=== PATIENT | female | born 1945 | race Caucasian/White ===

== ENCOUNTER 2018-06-04 14:53 | Inpatient (IN) ==
--- NOTE | 2018-06-04 16:30 | ED ---
HPI General Chief Complaint: Nausea/Vomiting/Diarrhea Stated Complaint: nausea/vomitting Time Seen by Provider: 06/04/18 16:23 Source: patient Mode of arrival: ambulatory Limitations: no limitations History of Present Illness HPI Narrative: According to patient she has been experiencing some nausea vomiting and diarrhea associated with some room spinning spells over the past 3- 4 days which are becoming worse. The episodes of room spinning have been so severe that it has cause her to have nausea vomiting multiple times. Now the patient is complaining of generalized weakness to the point that she now requires her 's assistance in order to ambulate and change in pivot from chair to bed or from bed to standing. MD complaint: Reports dizziness Timing: sudden onset Description: Reports "room spinning" History of similar episodes: No History of trauma: No Severity: moderate Relieving factors: nothing Exacerbating factors: movement Associated symptoms: Denies ataxia, chest pain and vision changes Related Data Home Medications Medication Instructions Recorded Confirmed amlodipine 10 mg PO DAILY 06/04/18 06/04/18 cholecalciferol (vitamin D3) 5,000 unit PO DAILY 06/04/18 06/04/18 [Vitamin D3] dabigatran etexilate [Pradaxa] 150 mg PO BID 06/04/18 06/04/18 escitalopram oxalate 20 mg PO DAILY 06/04/18 06/04/18 esomeprazole magnesium 40 mg PO DAILY 06/04/18 06/04/18 furosemide 80 mg PO DAILY 06/04/18 06/04/18 glipizide 5 mg PO BID 06/04/18 06/04/18 hydrocodone-acetaminophen 1 tab PO TID PRN 06/04/18 06/04/18 lovastatin 20 mg PO DAILY 06/04/18 06/04/18 metoprolol tartrate 75 mg PO BID 06/04/18 06/04/18 potassium chloride 10 meq PO DAILY 06/04/18 06/04/18 Allergies Allergy/AdvReac Type Severity Reaction Status Date / Time No Known Allergies Allergy Verified 06/04/18 16:18 Review of Systems ROS: all other systems reviewed are negative [facility] Medical History Medical History Afib (Acute) Diabetes (Acute) HTN (hypertension) (Acute) Surgical History Surgical History Hx of section (Acute) Hx of cholecystectomy (Acute) Social History Social History Second Hand Smoke Exposure: No Smoking Status: Never smoker How Often Do You Have a Drink Containing Alcohol: Never Recent Travel in [facility] within the Last 8 Weeks: No Recent Out of Country Travel within the Last 8 Weeks: No Immunization History Tetanus Immunization: Unsure Exam Narrative Exam Narrative: GENERAL: female patient in no apparent distress. SKIN: Warm and dry. HEAD: Atraumatic. Normocephalic. EYES: Pupils equal and round. No scleral icterus. No injection or drainage. Lateral nystagmus fatigable no vertical or rotary components. ENT: No nasal bleeding or discharge. Mucous membranes pink and moist. NECK: Trachea midline. No JVD. CARDIOVASCULAR: Regular rate and rhythm. no rubs or gallops RESPIRATORY: No accessory muscle use. Clear to auscultation. Breath sounds equal bilaterally. GASTROINTESTINAL: Abdomen soft, non-tender, nondistended. No rebound or guarding MUSCULOSKELETAL: Extremities without clubbing, cyanosis, or edema. No obvious deformities. NEUROLOGICAL: Awake and alert. No obvious cranial nerve deficits. Motor grossly within normal limits. 4 out of 5 muscle strength in the arms and legs, generalized weakness. Normal speech. PSYCHIATRIC: Appropriate mood and affect; insight and judgment normal. Course Initial Documented Vital Signs Temperature 99.0 F 06/04/18 15:06 Pulse Rate 108 H 06/04/18 15:06 Respiratory Rate 18 06/04/18 15:06 Blood Pressure 142/72 H 06/04/18 15:06 Pulse Oximetry 96 06/04/18 15:06 Last Documented Vital Signs Temperature 97.8 F 06/04/18 18:19 Pulse Rate 72 06/04/18 18:19 Respiratory Rate 16 06/04/18 18:19 Blood Pressure 200/95 H 06/04/18 18:19 Pulse Oximetry 97 06/04/18 18:19 Medical Decision Making MDM Narrative Medical decision making narrative: Unfortunately due to the patient's complex medical history including atrial fibrillation diabetes and hypertension, this patient will require an extended workup and disposition based on results. This patient was seen as part of the RMA process with my attending, Dr. Mann and I, Nathalia Urbano PA-C. I reviewed the labs and imaging studies with my attending and the patient. After further discussion, she states that she has felt dizziness with nausea and vomiting for 4 days. She believes she has had a stroke although she has never had a stroke previously. She states she takes Plavix for atrial fibrillation. Her operations analyst is Dr. Syed. She denies chest pain or shortness of breath. Her labs are notable for WBCs 12.1, H/H 15.5/47.3, neutrophil percent 82.3, sodium 135, potassium 3.4, chloride 97, BUN/creatinine 14/1.17, lactic 2.6. Initiated normal saline 1 L bolus. Troponin and CK pending. EKG shows sinus rhythm rate 66, no ST elevation or depression. CT head notes hypodensity with loss of german/white matter differentiation in the right MCA/AGRICULTURAL AGENT watershed zone suggestive of ischemia, mass, or infarction. Recommended MRI with and without contrast. This was ordered for evaluation. Added coags for further evaluation after CT was resulted. Chest x-ray shows possible early infiltrate or pleural effusion right lower chest. At this time, will admit patient for further evaluation for abnormal head CT CVA vs mass. Medical Screen Exam Complete: Yes Emergency Medical Condition: Yes Lab Data Result diagrams: 06/04/18 16:31 06/04/18 16:31 Lab Results 06/04/18 06/04/18 06/04/18 Range/Units 16:21 16:31 16:31 WBC 12.1 H (4.0-11.0) th/mm3 RBC 5.86 H (4.00-5.30) mil/mm3 Hgb 15.5 H (11.6-15.3) gm/dL Hct 47.3 H (35.0-46.0) % MCV 80.7 (80.0-100.0) fL MCH 26.5 L (27.0-34.0) pg MCHC 32.8 (32.0-36.0) % RDW 15.8 (11.6-17.2) % Plt Count 255 (150-450) th/mm3 MPV 9.5 (7.0-11.0) fL Neut % (Auto) 82.3 H (16.0-70.0) % Lymph % (Auto) 10.4 (9.0-44.0) % [place] % (Auto) 6.4 (0.0-8.0) % Eos % (Auto) 0.4 (0.0-4.0) % Baso % (Auto) 0.5 (0.0-2.0) % Neut # (Auto) 10.0 H (1.8-7.7) th/mm3 Lymph # (Auto) 1.3 (1.0-4.8) th/mm3 [place] # (Auto) 0.8 (0.0-0.9) th/mm3 Eos # (Auto) 0.0 (0.0-0.4) th/mm3 Baso # (Auto) 0.1 (0.0-0.2) th/mm3 WBC Differential . Differential Comment Auto diff final Sodium 135 L (136-145) meq/L Potassium 3.4 L (3.5-5.1) meq/L Chloride 97 L (98-107) meq/L Carbon Dioxide 30.5 (21.0-32.0) meq/L Anion Gap 8 (5-15) meq/L BUN 14 (7-18) mg/dL Creatinine 1.17 H (0.50-1.00) mg/dL Estimated GFR 46 L (>89) mL/min Random Glucose 173 H (74-106) mg/dL Lactic Acid 2.6 H (0.4-2.0) mmol/L Calcium 9.3 (8.5-10.1) mg/dL Total Bilirubin 0.7 (0.2-1.0) mg/dL AST 23 (15-37) U/L ALT 23 (10-53) U/L Alkaline Phosphatase 105 (45-117) U/L Total Protein 9.7 H (6.4-8.2) g/dL Albumin 3.7 (3.4-5.0) g/dL TSH 2.790 (0.358-3.740) uIU/mL Imaging Data Radiologist's impression: Chest X-Ray 06/04/18 16:23 CONCLUSION: 1. Possible early infiltrate or pleural effusion right lower chest. If the patient can tolerate a good quality PA and lateral view of the chest, this may be helpful for further evaluation. 2. Stable cardiomegaly. Head CT 06/04/18 16:23 CONCLUSION: 1. Hypodensity with loss of german/white matter differentiation in the right MCA/ AGRICULTURAL AGENT watershed zone suggestive of ischemia, mass, or infarction. Recommend further characterization with MRI with and without contrast. . Discharge Plan Discharge Disposition Patient Disposition: ED Admit(ED Internal Use Only) Discharge Condition Condition: Stable Discharge Order Discharge Orders: ED Use Only Admit Order (Routine); Ordered 06/04/18 Ordered By: Nathalia Urbano Discharge Details Diagnosis: Abnormal brain CT, Vertigo Physicians Team ED Provider: Thien Mann ED Midlevel Provider: Nathalia Urbano Primary Care Provider: Kwame Rhodes V Rxs /Orders / Referrals /Forms Prescriptions: No Action potassium chloride 10 mEq Capsule, Extended Release 10 meq PO DAILY RF: 0 hydrocodone-acetaminophen 10-325 mg Tablet 1 tab PO TID PRN (Reason: Pain) RF: 0 furosemide 80 mg Tablet 80 mg PO DAILY RF: 0 amlodipine 10 mg Tablet 10 mg PO DAILY RF: 0 esomeprazole magnesium 40 mg Capsule,Delayed Release(Dr/Ec) 40 mg PO DAILY RF: 0 lovastatin 20 mg Tablet 20 mg PO DAILY RF: 0 glipizide 5 mg Tablet 5 mg PO BID RF: 0 escitalopram oxalate 20 mg Tablet 20 mg PO DAILY RF: 0 cholecalciferol (vitamin D3) [Vitamin D3] 5,000 unit Tablet 5,000 unit PO DAILY RF: 0 metoprolol tartrate 75 mg Tablet 75 mg PO BID RF: 0 dabigatran etexilate [Pradaxa] 150 mg Capsule 150 mg PO BID RF: 0 Status ED Status: Admitted Patient
[2018-06-04 16:57] LABS: Baso # (Auto) 0.1 th/mm3 (0.0-0.2); Baso % (Auto) 0.5 % (0.0-2.0); Eos % (Auto) 0.4 % (0.0-4.0); Hematocrit 47.3 % (35.0-46.0); Hemoglobin 15.5 gm/dL (11.6-15.3); Lymph # (Auto) 1.3 th/mm3 (1.0-4.8); Lymph % (Auto) 10.4 % (9.0-44.0); Mean Corpuscular HGB Conc 32.8 % (32.0-36.0); Mean Corpuscular Hemoglobin 26.5 pg (27.0-34.0); Mean Corpuscular Volume 80.7 fL (80.0-100.0); Mean Platelet Volume 9.5 fL (7.0-11.0); Mono # (Auto) 0.8 th/mm3 (0.0-0.9); Mono % (Auto) 6.4 % (0.0-8.0); Neut % (Auto) 82.3 % (16.0-70.0); Platelet Count 255 th/mm3 (150-450); Red Blood Count 5.86 mil/mm3 (4.00-5.30); Red Cell Distribution Width 15.8 % (11.6-17.2); White Blood Count 12.1 th/mm3 (4.0-11.0)
[2018-06-04 17:12] LABS: Albumin 3.7 g/dL (3.4-5.0); Anion Gap 8 meq/L (5-15); Aspartate Aminotransferase 23 U/L (15-37); Blood Urea Nitrogen 14 mg/dL (7-18); Calcium 9.3 mg/dL (8.5-10.1); Carbon Dioxide 30.5 meq/L (21.0-32.0); Chloride 97 meq/L (98-107); Glomerular Filtration Rate 46 mL/min (>89); Glucose,Random 173 mg/dL (74-106); Potassium 3.4 meq/L (3.5-5.1); Sodium 135 meq/L (136-145)
[2018-06-04 17:13] LABS: Alanine Aminotransferase 23 U/L (10-53)
[2018-06-04 17:23] LABS: Alkaline Phosphatase 105 U/L (45-117); Total Protein 9.7 g/dL (6.4-8.2)
--- NOTE | 2018-06-04 17:27 | CT ---
EXAM DATE: 06/04/2018 5:20 PM EST AGE/SEX: 73 years / Female INDICATIONS: Dizziness and nausea for three days. CLINICAL DATA: This is the patient's initial encounter. Patient reports that signs and symptoms have been present for 1 day and indicates a pain score of 0/10. MEDICAL/SURGICAL HISTORY: Diabetes. Hypertension. Cholecystectomy. RADIATION DOSE: 53.36 CTDI (mGy) COMPARISON: No prior exams available for comparison. TECHNIQUE: CT of the head without contrast. Using automated exposure control and adjustment of the mA and/or kV according to patient size, radiation dose was kept as low as reasonably achievable to ob tain optimal diagnostic quality images. DICOM format image data is available electronically for revi ew and comparison. FINDINGS: Cerebrum: The examination is abnormal demonstrating hypodensity and loss of german/white matter differ entiation in the right parieto-occipital mid convexity. No evidence of blood products or mass effect. No extra-axial fluid collections. Posterior Fossa: The cerebellum and brainstem are intact. The 4th ventricle is midline. The cerebe llopontine angle is unremarkable. Extracranial: The visualized portion of the orbits is intact. Skull: The calvaria is intact. No evidence of skull fracture. CONCLUSION: 1. Hypodensity with loss of german/white matter differentiation in the right MCA/[employer] L[employer]ING SPECIALIST watershed zone [place] ggestive of ischemia, mass, or infarction. Recommend further characterization with MRI with and witho ut contrast. . Electronically signed by: Escobar Edmonds MD Board Certified Radiologist 06/04/2018 5:26 PM EST
[2018-06-04] MEDS ORDERED: Sod Chloride 0.9% Inj 1,000 ML IV.SIG SCH (17:30)
--- NOTE | 2018-06-04 17:30 | XR ---
EXAM DATE: 06/04/2018 5:25 PM EST AGE/SEX: 73 years / Female INDICATIONS: Aspiration, vomiting. CLINICAL DATA: This is the patient's initial encounter. Patient reports that signs and symptoms have been present for 3 days and indicates a pain score of 1/10. MEDICAL/SURGICAL HISTORY: . A-fib. None. COMPARISON: [facility] [place], CHEST SINGLE AP, 12/17/2015. . FINDINGS: Large body habitus. There is questionable asymmetric hazy opacity in the lower right chest with good delineation of the right hemidiaphragm. Cannot exclude infiltrate or pleural effusion. The left lung is clear. The heart is stable in size compared to 2016 with mild cardiomegaly. Osseous structures are intact. CONCLUSION: 1. Possible early infiltrate or pleural effusion right lower chest. If the patient can tolerate a go od quality PA and lateral view of the chest, this may be helpful for further evaluation. 2. Stable cardiomegaly. Electronically signed by: Escobar Edmonds MD Board Certified Radiologist 06/04/2018 5:28 PM EST
[2018-06-04] MEDS ORDERED: Gadobutrol PF 2 MMOL/2 ML Vial (for RAD) IV.SIG ONE (19:20)
[2018-06-04 19:29] LABS: Creatine Kinase 62 U/L (26-192)
[2018-06-04] MEDS ORDERED: Acetaminophen 325 MG Tablet PO PRN (20:02)
[2018-06-04] MEDS ORDERED: Sod Chloride 0.9% Inj 1,000 ML IV.CONT SCH (20:15)
--- NOTE | 2018-06-04 20:22 | P.HPIM ---
History of Present Illness Primary Care Physician: Kwame Rhodes MD 73-year-old female with a past medical history significant for atrial fibrillation anticoagulated on Pradaxa, diabetes mellitus, hypertension and hyperlipidemia presents to the emergency department for the evaluation of intractable nausea/vomiting. The patient reports that approximately 2 weeks ago she had cataract surgery and then started vomiting on Monday. She felt better until when the symptoms returned with accompanying dizziness and lightheadedness. She had nausea and vomiting all day and it has persisted although is mainly postprandial. She denies any weakness. No slurred speech. No facial droop. Endorses intermittent shortness of breath. No palpitations. No chest pain. No fever/chills. Inpatient Certification Inpatient Certification: I certify that the inpatient services were ordered in accordance with Medicare regulations governing the order. This includes certification that hospital inpatient services are reasonable and necessary and in the case of services not specified as inpatient-only under 42 CFR 419.22(n), that they are appropriately provided as inpatient services in accordance to with the 2-midnight benchmark under 43 CFR 412.3(e) Estimated Total Length of Stay (Days): 3 Plans for Post Hospital Care: Home Review of Systems Review of Systems: all other systems reviewed are negative [facility] Medical History Medical History Afib (Acute) Diabetes (Acute) HTN (hypertension) (Acute) Hyperlipidemia (Acute) Surgical History Surgical History Hx of section (Acute) Hx of cholecystectomy (Acute) Family History Family History Other Coronary artery disease Diabetes mellitus Social History Social History Second Hand Smoke Exposure: No Smoking Status: Never smoker How Often Do You Have a Drink Containing Alcohol: Never Recent Travel in [place] within the Last 8 Weeks: No Recent Out of Country Travel within the Last 8 Weeks: No Immunization History Tetanus Immunization: Unsure Medications and Allergies Allergies Allergy/AdvReac Type Severity Reaction Status Date / Time No Known Allergies Allergy Verified 06/04/18 16:18 Home Medications Medication Instructions Recorded Confirmed Type amlodipine 10 mg PO DAILY 06/04/18 06/04/18 History cholecalciferol (vitamin D3) 5,000 unit PO DAILY 06/04/18 06/04/18 History [Vitamin D3] dabigatran etexilate [Pradaxa] 150 mg PO BID 06/04/18 06/04/18 History escitalopram oxalate 20 mg PO DAILY 06/04/18 06/04/18 History esomeprazole magnesium 40 mg PO DAILY 06/04/18 06/04/18 History furosemide 80 mg PO DAILY 06/04/18 06/04/18 History glipizide 5 mg PO BID 06/04/18 06/04/18 History hydrocodone-acetaminophen 1 tab PO TID PRN 06/04/18 06/04/18 History lovastatin 20 mg PO DAILY 06/04/18 06/04/18 History metoprolol tartrate 75 mg PO BID 06/04/18 06/04/18 History potassium chloride 10 meq PO DAILY 06/04/18 06/04/18 History Active Medications: Active Medications Acetaminophen (Tylenol) 650 mg PO Q4H PRN PRN Reason: Temp > 100.4 Sodium Chloride (Ns Inj) 1,000 mls @ 100 mls/hr IV.CONT .Q10H CELESTE Ondansetron HCl (Zofran Inj) 4 mg IV.PUSH Q6H PRN PRN Reason: NAUSEA OR VOMITING Sodium Chloride (Ns Flush) 2 ml IV.FLUSH PRN PRN PRN Reason: FLUSH AFTER USING IV ACCESS Last Admin: 06/04/18 17:00 Dose: 2 ml Sodium Chloride (Ns Flush) 2 ml IV.FLUSH BID [facility] Physical Exam Vital signs: Vital Signs 06/04/18 15:06 06/04/18 16:23 06/04/18 18:19 Temperature 99.0 F 97.8 F Pulse Rate 108 H 66 72 Respiratory Rate 18 16 Blood Pressure 142/72 H 200/95 H Pulse Oximetry 96 97 97 Intake & Output 06/04/18 06/04/18 06/05/18 06:59 18:59 06:59 Intake Total 1000 / 1000 Balance 1000 / 1000 Weight 120.202 kg Intake: IV 1000 / 1000 NS Inj 1,000 ML @ 1000 mls/hr 1000 / 1000 IV.SIG BOLUS [facility] Rx#:[id number] Narrative: Gen.: No acute distress Head: Normocephalic. Atraumatic. EENT: Pupils equal round and reactive to light. Nose without drainage. Airway intact. Throat without injection. Cardiovascular: Regular rate and rhythm. No murmurs, rubs or gallops. Respiratory: Lungs clear to auscultation bilaterally. No wheezes or rhonchi. Abdomen: Soft, nontender, nondistended. No peritoneal signs. Musculoskeletal: No gross deformities. No edema. Skin: No obvious rashes or erythema. Neuro: Cranial nerves II through XII intact. Sensation intact throughout. Strength 5/5 throughout. Alert and oriented x4. No facial droop or slurred speech. Results Labs CBC & Chem 7: 06/04/18 16:31 06/04/18 16:31 Imaging Impressions Chest X-Ray 06/04/18 16:23 CONCLUSION: 1. Possible early infiltrate or pleural effusion right lower chest. If the patient can tolerate a good quality PA and lateral view of the chest, this may be helpful for further evaluation. 2. Stable cardiomegaly. Head CT 06/04/18 16:23 CONCLUSION: 1. Hypodensity with loss of german/white matter differentiation in the right MCA/ NURSE EMERGENCY watershed zone suggestive of ischemia, mass, or infarction. Recommend further characterization with MRI with and without contrast. . Caprini VTE Risk Assessment Caprini VTE Risk Assessment: Moderate/High Risk (score >= 2) Caprini Risk Assessment Model: Point Value = 1 Point Value = 2 Point Value = 3 Point Value = 5 Age 41-60 Minor surgery BMI > 25 kg/m2 Swollen legs Varicose veins or History of unexplained or recurrent spontaneous Oral contraceptives or hormone replacement Sepsis (< 1 month) Serious lung disease, including pneumonia (< 1 month) Abnormal pulmonary function Acute myocardial infarction Congestive heart failure (< 1 month) History of inflammatory bowel disease Medical patient at bed rest Age 61-74 Arthroscopic surgery Major open surgery (> 45 min) Laparoscopic surgery (> 45 min) Malignancy Confined to bed (> 72 hours) Immobilizing plaster cast Central venous access Age >= 75 History of VTE Family history of VTE Factor V Leiden Prothrombin [id number] Lupus anticoagulant Anticardiolipin antibodies Elevated serum homocysteine Heparin-induced thrombocytopenia Other congenital or acquired thrombophilia Stroke (< 1 month) Elective arthroplasty Hip, pelvis, or leg fracture Acute spinal cord injury (< 1 month) Prophylaxis Regimen: Total Risk Factor Score Risk Level Prophylaxis Regimen 0-1 Low Early ambulation 2 Moderate Order ONE of the following: *Sequential Compression Device (SCD) *Heparin 5000 units SQ BID 3-4 Higher Order ONE of the following medications: *Heparin 5000 units SQ TID *Enoxaparin/Lovenox 40 mg SQ daily (WT < 150 kg, CrCl > 30 mL/min) *Enoxaparin/Lovenox 30 mg SQ daily (WT < 150 kg, CrCl > 10-29 mL/min) *Enoxaparin/Lovenox 30 mg SQ BID (WT < 150 kg, CrCl > 30 mL/min) AND/OR *Sequential Compression Device (SCD) 5 or more Highest Order ONE of the following medications: *Heparin 5000 units SQ TID (Preferred with Epidurals) *Enoxaparin/Lovenox 40 mg SQ daily (WT < 150 kg, CrCl > 30 mL/min) *Enoxaparin/Lovenox 30 mg SQ daily (WT < 150 kg, CrCl > 10-29 mL/min) *Enoxaparin/Lovenox 30 mg SQ BID (WT < 150 kg, CrCl > 30 mL/min) AND *Sequential Compression Device (SCD) Assessment and Plan Plan N.p.o. Assessment/plan: 1. Lightheadedness with intractable nausea/vomiting Patient denies any abdominal pain Likely secondary to findings on head CT Plan as below 2. CVA versus mass Head CT per hypodensity with loss of german/white matter differentiation in the right MCA/NURSE EMERGENCY watershed zone suggestive of ischemia, mass or infarction MRI pending MRA/carotid ultrasound pending Echo pending Neurology consulted, appreciate assistance 3. Atrial fibrillation Continue home metoprolol Continue Pradaxa 4. Diabetes mellitus Holding home glipizide Sliding-scale insulin Monitor blood glucose 5. Hypertension/hyperlipidemia Continue home medications FEN: NPO Electrolytes: Status post p.o. repletion of potassium, monitor BMP Pradaxa
[2018-06-04] MEDS ORDERED: Dextrose 50% in Water 50 ML Vial IV.PUSH PRN (20:24)
[2018-06-04 20:27] LABS: Activated Partial Thrombo Time 33.1 sec (23.4-31.7); INR 1.1 Ratio; Prothrombin Time 11.4 sec (9.8-11.6)
--- NOTE | 2018-06-04 20:45 | MR ---
EXAM DATE: 06/04/2018 8:36 PM EST AGE/SEX: 73 years / Female INDICATIONS: Dizziness. CLINICAL DATA: This is the patient's initial encounter. Patient reports that signs and symptoms have been present for 4 - 6 days and indicates a pain score of 0/10. MEDICAL/SURGICAL HISTORY: Hypertension. Diabetes mellitus type II. Afib. Cholecystectomy. COMPARISON: [facility] [place], CT HEAD W/O CONTRAST, 06/04/2018. . TECHNIQUE: Multiplanar, multisequence examination of the brain was performed without and with 12 ml G adavist (gadobutrol) contrast as a single exam dose. FINDINGS: Cerebrum: There is signal abnormality in the posterior right parietal lobe as seen on recent CT. Thi s demonstrates no mass effect. No restricted diffusion. No abnormal enhancement. Findings likely repr esent a subacute to chronic infarct or other old insult. No evidence of acute intracranial hemorrhage or extra-axial fluid collection. No intracranial mass identified. White Matter: White matter signal abnormality in the right parietal lobe. Posterior Fossa: The cerebellum and brainstem are intact. The 4th ventricle is midline. The cerebel lopontine angle is unremarkable. The cerebellar tonsils are normal in position. Diffusion Imaging: No focal areas of restricted diffusion are seen. No evidence of acute infarction . Extracranial: The visualized portions of the orbits and paranasal sinuses are unremarkable. Post Contrast: No abnormal areas of parenchymal or dural enhancement. No evidence of blood-brain ba rrier breakdown. CONCLUSION: Signal abnormality in the posterior right parietal lobe with no associated mass effect or abnormal en hancement. No restricted diffusion on the diffusion-weighted images. 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 Electronically signed by: Miles Koo MD Board Certified Radiologist 06/04/2018 8:43 PM EST
--- NOTE | 2018-06-04 21:48 | US ---
EXAM DATE: 06/04/2018 9:44 PM EST AGE/SEX: 73 years / Female INDICATIONS: Cerebrovascular accident. CLINICAL DATA: This is the patient's initial encounter. Patient reports that signs and symptoms have been present for 1 day and indicates a pain score of 0/10. MEDICAL/SURGICAL HISTORY: Hypertension. Atrial fibrillation. Diabetes. Hyperlipidemia. Cholecy stectomy. section. COMPARISON: No prior exams available for comparison. VELOCITY PARAMETERS: ICA/CCA Ratio: Right 2.4 , Left 0.8 ICA: Right 158.5 cm/sec, Left 72.3 cm/sec CCA: Right 66.9 cm/sec, Left 87.1 cm/sec ECA: Right 116.0 cm/sec, Left 79.4 cm/sec Vertebral: Right 41.7 cm/sec antegrade, Left 42.7 cm/sec antegrade FINDINGS: Right Carotid: Moderate arteriosclerotic plaque is visualized.The waveforms are within normal limits . Left Carotid: Moderate arteriosclerotic plaque is visualized. The waveforms are within normal limits . Other: None. CONCLUSION: 1. Right Internal Carotid Artery: Findings indicate possible 50-69% stenosis. 2. Left Internal Carotid Artery: Findings indicate <50% stenosis. Electronically signed by: Miles Koo MD Board Certified Radiologist 06/04/2018 9:46 PM EST
[2018-06-04] MEDS: Insulin NovoLOG Aspart Correctional Sugar Inj SQ SCH (22:10)
[2018-06-04] MEDS: Metoprolol Tartrate 25 MG Tablet PO SCH (22:14)
[2018-06-05] MEDS: Insulin NovoLOG Aspart Correctional Sugar Inj SQ SCH ×5 (02:41→21:49)
[2018-06-05 07:30] LABS: Baso # (Auto) 0.1 th/mm3 (0.0-0.2); Baso % (Auto) 0.5 % (0.0-2.0); Eos % (Auto) 0.5 % (0.0-4.0); Hemoglobin 13.8 gm/dL (11.6-15.3); Lymph # (Auto) 1.4 th/mm3 (1.0-4.8); Lymph % (Auto) 14.1 % (9.0-44.0); Mean Corpuscular HGB Conc 32.8 % (32.0-36.0); Mean Corpuscular Volume 82.4 fL (80.0-100.0); Mean Platelet Volume 9.5 fL (7.0-11.0); Mono # (Auto) 0.7 th/mm3 (0.0-0.9); Mono % (Auto) 6.9 % (0.0-8.0); Neut # (Auto) 7.6 th/mm3 (1.8-7.7); Platelet Count 202 th/mm3 (150-450); Red Cell Distribution Width 15.3 % (11.6-17.2); White Blood Count 9.8 th/mm3 (4.0-11.0)
[2018-06-05 08:02] LABS: Calcium 8.3 mg/dL (8.5-10.1); Potassium 3.8 meq/L (3.5-5.1)
[2018-06-05] MEDS: Furosemide 80 MG Tablet PO SCH (08:03)
[2018-06-05] MEDS: Metoprolol Tartrate 25 MG Tablet PO SCH ×3 (08:03→21:48)
--- NOTE | 2018-06-05 09:42 | MR ---
EXAM DATE: 06/05/2018 9:35 AM EST AGE/SEX: 73 years / Female INDICATIONS: Cephalgia. Nausea. CVA. CLINICAL DATA: This is the patient's subsequent encounter. Patient reports that signs and symptoms h ave been present for 4 - 6 days and indicates a pain score of 3/10. MEDICAL/SURGICAL HISTORY: Hypertension. Diabetes. Afib. Cholecystectomy. section. COMPARISON: [facility] [place], MR HEAD W & W/O CONTRAST, 06/04/2018. . TECHNIQUE: 3D [id number] MRA was performed. Source images, multiplanar STS MIP, and 3D volum e MIP reconstructions were reviewed. FINDINGS: There is excellent visualization of the major intracranial arteries out to the second-order branch ve ssels. There is no evidence for aneurysm, vessel truncation or stenosis, and no evidence for vascula r malformation. Flow is seen in the anterior communicating artery and in the left PCOM. CONCLUSION: 1. Negative MRA of the [place]. Electronically signed by: Escobar Edmonds MD Board Certified Radiologist 06/05/2018 9:41 AM EST
--- NOTE | 2018-06-05 11:17 | P.PNIM ---
Subjective Interval history: Follow-up subacute right parietal lobe CVA June 05, 2018patient seen and examined, currently stable. by the bedside. Brain MRA negative. Physical Exam Vital signs: Vital Signs 06/04/18 15:06 06/04/18 16:23 06/04/18 18:19 Temperature 99.0 F 97.8 F Pulse Rate 108 H 66 72 Respiratory Rate 18 16 Blood Pressure 142/72 H 200/95 H Pulse Oximetry 96 97 97 06/04/18 20:39 06/04/18 21:45 06/04/18 23:45 Temperature 97.6 F 98.2 F Pulse Rate 71 70 65 Respiratory Rate 20 18 18 Blood Pressure 158/72 H 149/76 H 108/57 L Pulse Oximetry 96 94 L 95 06/05/18 03:58 06/05/18 04:25 06/05/18 07:37 Temperature 98.1 F 98.1 F Pulse Rate 68 71 66 Respiratory Rate 18 20 Blood Pressure 142/66 H 184/84 H Pulse Oximetry 94 L 93 L 06/05/18 08:00 Temperature Pulse Rate 68 Respiratory Rate Blood Pressure Pulse Oximetry Intake & Output 06/04/18 06/05/18 06/05/18 18:59 06:59 18:59 Intake Total 1000 / 1000 Balance 1000 / 1000 Weight 120.202 kg 125.2 kg Intake: IV 1000 / 1000 NS Inj 1,000 ML @ 1000 mls/hr 1000 / 1000 IV.SIG BOLUS CELESTE Rx#:[id number] Other: # Voids 1 Date of Last Bowel Movement 05/28/18 Weight On Admission 125.2 kg Narrative: Gen.: No acute distress Head: Normocephalic. Atraumatic. EENT: Pupils equal round and reactive to light. Nose without drainage. Airway intact. Throat without injection. Cardiovascular: Regular rate and rhythm. No murmurs, rubs or gallops. Respiratory: Lungs clear to auscultation bilaterally. No wheezes or rhonchi. Abdomen: Soft, nontender, nondistended. No peritoneal signs. Musculoskeletal: No gross deformities. No edema. Skin: No obvious rashes or erythema. Neuro: Cranial nerves II through XII intact. Sensation intact throughout. Strength 5/5 throughout. Alert and oriented x4. No facial droop or slurred speech. Results Labs CBC & Chem 7: 06/05/18 07:03 06/05/18 07:03 Labs: Microbiology 06/04/18 16:35 Blood - Peripheral Aerobic Blood Culture - Preliminary No growth in 1 day 06/04/18 16:35 Blood - Peripheral Anaerobic Blood Culture - Preliminary No growth in 1 day 06/04/18 16:20 Blood - Peripheral Aerobic Blood Culture - Preliminary No growth in 1 day 06/04/18 16:20 Blood - Peripheral Anaerobic Blood Culture - Preliminary No growth in 1 day Imaging Imaging: Impressions Carotid Doppler Study 06/04/18 00:00 CONCLUSION: 1. Right Internal Carotid Artery: Findings indicate possible 50-69% stenosis. 2. Left Internal Carotid Artery: Findings indicate <50% stenosis. Chest X-Ray 06/04/18 16:23 CONCLUSION: 1. Possible early infiltrate or pleural effusion right lower chest. If the patient can tolerate a good quality PA and lateral view of the chest, this may be helpful for further evaluation. 2. Stable cardiomegaly. Head CT 06/04/18 16:23 CONCLUSION: 1. Hypodensity with loss of german/white matter differentiation in the right MCA/ SPORTS EQUIPMENT REPAIRER watershed zone suggestive of ischemia, mass, or infarction. Recommend further characterization with MRI with and without contrast. . Head MRI 06/04/18 18:01 CONCLUSION: Signal abnormality in the posterior right parietal lobe with no associated mass effect or abnormal enhancement. No restricted diffusion on the diffusion- weighted images. Findings suggest subacute to chronic right parietal lobe infarct/insult. Head MRA 06/05/18 00:00 CONCLUSION: 1. Negative MRA of the [place] of [place]. Assessment and Plan Plan 73-year-old female with 1. Lightheadedness with intractable nausea/vomiting Patient denies any abdominal pain Likely secondary to findings on head CT as well as brain MRI Plan as below 2. Subacute right parietal lobe CVA Continue treatment per stroke protocol Permissive hypertension Head CT per hypodensity with loss of german/white matter differentiation in the right MCA/SPORTS EQUIPMENT REPAIRER watershed zone suggestive of ischemia, mass or infarction MRI positive for subacute to chronic right parietal lobe CVA MRA/carotid ultrasound unremarkable Echo pending Neurology consulted, appreciate assistance 3. Atrial fibrillation Continue home metoprolol Continue Pradaxa 4. Diabetes mellitus Holding home glipizide Sliding-scale insulin Monitor blood glucose 5. Hypertension/hyperlipidemia Continue home medications Progress Note: Quality VTE Deep Vein Thrombosis/Pulmonary Embolism Present on Admission: No
--- NOTE | 2018-06-05 12:38 | ECG ---
Date Performed: 06/04/2018 Time Performed: 16:55:29 PTAGE: 73 years EKG: Sinus rhythm MARKED LEFT AXIS DEVIATION NONSPECIFIC T-WAVE ABNORMALITY ABNORMAL ECG PREVIOUS TRACING : 03/28/2018 12.38 DOCTOR: Azalea Nathan Interpretating Date/Time 06/05/2018 12:30:40
--- NOTE | 2018-06-05 13:40 | ECHRPT ---
Indication: CVA/TIA CONCLUSIONS Normal left ventricular size. Wall thickness is measured at the upper limits of normal. The left ventricular systolic function is normal with an estimated ejection fraction in the range of 60-65%. No definite regional wall motion abnormalities are present. Trace mitral valve regurgitation. The aortic valve is not well visualized. There is mild tricuspid valve regurgitation. The estimated pulmonary arterial pressure is 50 mmHg. BP: / HR: Rhythm: Sinus MEASUREMENTS (Male / Female) Normal Values Technical Quality:Fair 2D ECHO LV Diastolic Diameter PLAX 5.3 cm 4.2 - 5.9 / 3.9 - 5.3 cm LV Systolic Diameter PLAX 3.4 cm IVS Diastolic Thickness 1.1 cm 0.6 - 1.0 / 0.6 - 0.9 cm LVPW Diastolic Thickness 1.1 cm 0.6 - 1.0 / 0.6 - 0.9 cm LV Relative Wall Thickness 0.4 RV Internal Dim ED PLAX 2.3 cm LVOT Diameter 2.2 cm Aortic Root Diameter 2.8 cm LA Systolic Diameter LX 3.2 cm 3.0 - 4.0 / 2.7 - 3.8 cm M-MODE AV Cusp Separation MM 1.8 cm DOPPLER AV Peak Velocity 152.0 cm/s AV Peak Gradient 9.2 mmHg AV Mean Gradient 5.0 mmHg AV Velocity Time Integral 31.3 cm LVOT Peak Velocity 92.5 cm/s LVOT Peak Gradient 3.4 mmHg LVOT Velocity Time Integral 20.5 cm AV Area Cont Eq vti 2.5 cm AV Area Cont Eq pk 2.3 cm Mitral E Point Velocity 98.7 cm/s Mitral A Point Velocity 69.1 cm/s Mitral E to A Ratio 1.4 LV E' Lateral Velocity 10.5 cm/s Mitral E to LV E' Lateral Ratio 9.4 LV E' Septal Velocity 6.0 cm/s Mitral E to LV E' Septal Ratio 16.3 TR Peak Velocity 331.0 cm/s TR Peak Gradient 43.8 mmHg Right Atrial Pressure 10.0 mmHg Pulmonary Artery Systolic Pressu 53.8 mmHg Right Ventricular Systolic Press 53.8 mmHg PV Peak Velocity 81.2 cm/s PV Peak Gradient 2.6 mmHg FINDINGS LEFT VENTRICLE Normal left ventricular size. Wall thickness is measured at the upper limits of normal. The left ventricular systolic function is normal with an estimated ejection fraction in the range of 60-65%. No definite regional wall motion abnormalities are present. RIGHT VENTRICLE Normal right ventricular size and systolic function. LEFT ATRIUM The left atrial size is normal. RIGHT ATRIUM The right atrial size is normal. ATRIAL SEPTUM No atrial level shunt is demonstrated by color flow Doppler interrogation. AORTA The aortic root and proximal ascending aorta are normal in size on limited imaging. MITRAL VALVE Trace mitral valve regurgitation. AORTIC VALVE The aortic valve is not well visualized. TRICUSPID VALVE There is mild tricuspid valve regurgitation. The estimated pulmonary arterial pressure is 50 mmHg. PULMONARY VALVE No pulmonary valve regurgitation or stenosis. VESSELS The inferior vena cava was not well visualized. PERICARDIUM No pericardial effusion. Yo Burks MD (Electronically Signed) Final Date:05 June 2018 13:39
--- NOTE | 2018-06-05 16:15 | P.CONNEU ---
History of Present Illness Service: Neurology Primary Care Provider: Kwame Rhodes MD Chief Complaint: Abnormal CT scan History of Present Illness: 73-year-old female admitted for dizziness and abnormal CT scan. Dizziness occurring for the past several days. On and off worse with head movement positional change. Spinning sensation. Associated nausea gait imbalance. Denies any tinnitus or hearing loss. States is never happened to her before. 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 Denies any history of head or neck trauma. Denies any vision loss or focal weakness or any hemisensory symptoms. Denies any history of previous TIA or stroke. Review of Systems All other systems reviewed negative except as stated in [facility] - History History Provided By: Patient - Medical History Medical History: Medical History (Last Reviewed 06/05/18 @ 11:19 by Cindi Dodson) Afib Diabetes HTN (hypertension) Hyperlipidemia - Surgical History Surgical History: Surgical History (Last Reviewed 06/05/18 @ 11:19 by Cindi Dodson) Hx of section Hx of cholecystectomy - Family History Family History: Family History (Last Reviewed 06/04/18 @ 16:27 by Thien Mann) Other Coronary artery disease Diabetes mellitus - Tobacco History Second Hand Smoke Exposure: No Smoking Status: Never smoker - Alcohol History How Often Do You Have a Drink Containing Alcohol: Never - Substance Use History Substance History: No History of Abuse, Unable to Obtain - Travel History Recent Travel in the [place] Within the Last 8 Weeks: No Recent Travel Out of the Country Within the Last 8 Weeks: No - Immunization History Tetanus Immunization: Unsure Medications and Allergies Active Medications: Active Medications Acetaminophen (Tylenol) 650 mg PO Q4H PRN PRN Reason: Temp > 100.4 Dabigatran (Pradaxa) 150 mg PO BID [facility] Last Admin: 06/05/18 08:05 Dose: Not Given Dextrose (D50w Vial) 50 ml IV.PUSH UNSCH PRN PRN Reason: PER HYPOGLYCEMIA PROTOCOL Furosemide (Lasix) 80 mg PO DAILY [facility] Last Admin: 06/05/18 08:03 Dose: Not Given Glucagon (Glucagon Inj) 1 mg OTHER PRN PRN PRN Reason: for Hypoglycemia Protocol Insulin Aspart (Novolog Insulin Correctional Sugar Inj) 0 unit SQ ACHS AND 3AM CELESTE; Protocol Last Admin: 06/05/18 11:58 Dose: Not Given Metoprolol Tartrate (Lopressor) 75 mg PO BID [facility] Last Admin: 06/05/18 08:03 Dose: Not Given Ondansetron HCl (Zofran Inj) 4 mg IV.PUSH Q6H PRN PRN Reason: NAUSEA OR VOMITING Last Admin: 06/05/18 14:19 Dose: 4 mg Sodium Chloride (Ns Flush) 2 ml IV.FLUSH PRN PRN PRN Reason: FLUSH AFTER USING IV ACCESS Last Admin: 06/04/18 17:00 Dose: 2 ml Sodium Chloride (Ns Flush) 2 ml IV.FLUSH BID [facility] Last Admin: 06/05/18 08:03 Dose: 2 ml Allergies Allergy/AdvReac Type Severity Reaction Status Date / Time No Known Allergies Allergy Verified 06/04/18 16:18 Home Medications Medication Instructions Recorded Confirmed Type amlodipine 10 mg PO DAILY 06/04/18 06/04/18 History cholecalciferol (vitamin D3) 5,000 unit PO DAILY 06/04/18 06/04/18 History [Vitamin D3] dabigatran etexilate [Pradaxa] 150 mg PO BID 06/04/18 06/04/18 History escitalopram oxalate 20 mg PO DAILY 06/04/18 06/04/18 History esomeprazole magnesium 40 mg PO DAILY 06/04/18 06/04/18 History furosemide 80 mg PO DAILY 06/04/18 06/04/18 History glipizide 5 mg PO BID 06/04/18 06/04/18 History hydrocodone-acetaminophen 1 tab PO TID PRN 06/04/18 06/04/18 History lovastatin 20 mg PO DAILY 06/04/18 06/04/18 History metoprolol tartrate 75 mg PO BID 06/04/18 06/04/18 History potassium chloride 10 meq PO DAILY 06/04/18 06/04/18 History Exam Vital signs: Vital Signs 06/04/18 16:23 06/04/18 18:19 06/04/18 20:39 Temperature 97.8 F Pulse Rate 66 72 71 Respiratory Rate 16 20 Blood Pressure 200/95 H 158/72 H Pulse Oximetry 97 97 96 06/04/18 21:45 06/04/18 23:45 06/05/18 03:58 Temperature 97.6 F 98.2 F Pulse Rate 70 65 68 Respiratory Rate 18 18 Blood Pressure 149/76 H 108/57 L Pulse Oximetry 94 L 95 06/05/18 04:25 06/05/18 07:37 06/05/18 08:00 Temperature 98.1 F 98.1 F Pulse Rate 71 66 68 Respiratory Rate 18 20 Blood Pressure 142/66 H 184/84 H Pulse Oximetry 94 L 93 L 06/05/18 11:31 Temperature 98.0 F Pulse Rate 64 Respiratory Rate 18 Blood Pressure 150/70 H Pulse Oximetry 93 L Intake & Output 06/04/18 06/05/18 06/05/18 18:59 06:59 18:59 Intake Total 1000 / 1000 Balance 1000 / 1000 Weight 120.202 kg 125.2 kg Intake: IV 1000 / 1000 NS Inj 1,000 ML @ 1000 mls/hr 1000 / 1000 IV.SIG BOLUS CELESTE Rx#:[id number] Other: # Voids 1 Date of Last Bowel Movement 05/28/18 Weight On Admission 125.2 kg Narrative: GENERAL: in NAD, obese SKIN: Warm and dry. HEAD: Atraumatic. Normocephalic. EYES: Pupils equal and round. ENT: No nasal bleeding or discharge. NECK: Trachea midline. No JVD. CARDIOVASCULAR: Regular rate and rhythm. RESPIRATORY: No accessory muscle use. GASTROINTESTINAL: Abdomen soft, non-tender, nondistended. MUSCULOSKELETAL: Extremities without clubbing, cyanosis, or edema. NEUROLOGICAL: Awake and alert. Oriented x3 no aphasia, fluent articulate, No facial asymmetry, OU 3-2mm, eomi, VFF, No drift, Motor grossly within normal limits. Five out of 5 muscle strength in the arms and legs. Tone normal in all 4 limbs, Sensory normal in all 4 extremities to pin, msr 1-2+ sym, no clonus, planterflexor, positive head thrust test to the left. Left greater than right horizontal and gaze nystagmus PSYCHIATRIC: Appropriate mood and affect; insight and judgment normal. Results - Labs CBC & Chem 7: 06/05/18 07:03 06/05/18 07:03 Labs: Laboratory Results - last 24 hr 06/04/18 06/04/18 06/04/18 16:21 16:31 16:31 WBC 12.1 H RBC 5.86 H Hgb 15.5 H Hct 47.3 H MCV 80.7 MCH 26.5 L MCHC 32.8 RDW 15.8 Plt Count 255 MPV 9.5 Neut % (Auto) 82.3 H Lymph % (Auto) 10.4 [place] % (Auto) 6.4 Eos % (Auto) 0.4 Baso % (Auto) 0.5 Neut # (Auto) 10.0 H Lymph # (Auto) 1.3 [place] # (Auto) 0.8 Eos # (Auto) 0.0 Baso # (Auto) 0.1 WBC Differential . Differential Comment Auto diff final PT INR APTT Sodium 135 L Potassium 3.4 L Chloride 97 L Carbon Dioxide 30.5 Anion Gap 8 BUN 14 Creatinine 1.17 H Estimated GFR 46 L POC Glucose Random Glucose 173 H Lactic Acid 2.6 H Calcium 9.3 Total Bilirubin 0.7 AST 23 ALT 23 Alkaline Phosphatase 105 Total Creatine Kinase Troponin I Total Protein 9.7 H Albumin 3.7 TSH 2.790 06/04/18 06/04/18 06/04/18 16:31 19:38 19:38 WBC RBC Hgb Hct MCV MCH MCHC RDW Plt Count MPV Neut % (Auto) Lymph % (Auto) [place] % (Auto) Eos % (Auto) Baso % (Auto) Neut # (Auto) Lymph # (Auto) [place] # (Auto) Eos # (Auto) Baso # (Auto) WBC Differential Differential Comment PT 11.4 INR 1.1 APTT 33.1 H Sodium Potassium Chloride Carbon Dioxide Anion Gap BUN Creatinine Estimated GFR POC Glucose Random Glucose Lactic Acid 1.5 Calcium Total Bilirubin AST ALT Alkaline Phosphatase Total Creatine Kinase 62 Troponin I Less than 0.02 L Total Protein Albumin [facility] 06/04/18 06/05/18 06/05/18 21:48 02:38 07:03 WBC 9.8 RBC 5.10 Hgb 13.8 Hct 42.0 MCV 82.4 MCH 27.0 MCHC 32.8 RDW 15.3 Plt Count 202 MPV 9.5 Neut % (Auto) 78.0 H Lymph % (Auto) 14.1 [place] % (Auto) 6.9 Eos % (Auto) 0.5 Baso % (Auto) 0.5 Neut # (Auto) 7.6 Lymph # (Auto) 1.4 [place] # (Auto) 0.7 Eos # (Auto) 0.0 Baso # (Auto) 0.1 WBC Differential . Differential Comment Auto diff final PT INR APTT Sodium Potassium Chloride Carbon Dioxide Anion Gap BUN Creatinine Estimated GFR POC Glucose 106 121 H Random Glucose Lactic Acid Calcium Total Bilirubin AST ALT Alkaline Phosphatase Total Creatine Kinase Troponin I Total Protein Albumin TSH 06/05/18 06/05/18 06/05/18 07:03 08:02 11:53 WBC RBC Hgb Hct MCV MCH MCHC RDW Plt Count MPV Neut % (Auto) Lymph % (Auto) [place] % (Auto) Eos % (Auto) Baso % (Auto) Neut # (Auto) Lymph # (Auto) [place] # (Auto) Eos # (Auto) Baso # (Auto) WBC Differential Differential Comment PT INR APTT Sodium 140 Potassium 3.8 Chloride 104 Carbon Dioxide 32.0 Anion Gap 4 L BUN 16 Creatinine 1.00 Estimated GFR 55 L POC Glucose 139 H 119 H Random Glucose 155 H Lactic Acid Calcium 8.3 L D Total Bilirubin AST ALT Alkaline Phosphatase Total Creatine Kinase Troponin I Total Protein Albumin TSH - Imaging Impressions Carotid Doppler Study 06/04/18 00:00 CONCLUSION: 1. Right Internal Carotid Artery: Findings indicate possible 50-69% stenosis. 2. Left Internal Carotid Artery: Findings indicate <50% stenosis. Chest X-Ray 06/04/18 16:23 CONCLUSION: 1. Possible early infiltrate or pleural effusion right lower chest. If the patient can tolerate a good quality PA and lateral view of the chest, this may be helpful for further evaluation. 2. Stable cardiomegaly. Head CT 06/04/18 16:23 CONCLUSION: 1. Hypodensity with loss of german/white matter differentiation in the right MCA/ LIGHTING TECHNICIAN watershed zone suggestive of ischemia, mass, or infarction. Recommend further characterization with MRI with and without contrast. . Head MRI 06/04/18 18:01 CONCLUSION: Signal abnormality in the posterior right parietal lobe with no associated mass effect or abnormal enhancement. No restricted diffusion on the diffusion- weighted images. Findings suggest subacute to chronic right parietal lobe infarct/insult. Head MRA 06/05/18 00:00 CONCLUSION: 1. Negative MRA of the [place] of [place]. Review/Management - Diagnosis (1) BPV (benign positional vertigo) Code(s): H81.10 - Benign paroxysmal vertigo, unspecified ear Status: Acute Current Visit: Yes (2) Obesity Code(s): E66.9 - Obesity, unspecified Status: Acute Current Visit: Yes (3) Gait disorder Code(s): R26.9 - Unspecified abnormalities of gait and mobility Status: Acute Current Visit: Yes (4) A-fib Code(s): I48.91 - Unspecified atrial fibrillation Status: Acute Current Visit: Yes - Review/Management Plan: Probable benign positional vertigo. Positive head thrust test with rotatory nystagmus MRI brain scan reviewed old right MCA stroke not acute not related to her current symptomatology Recommendation Meclizine as needed Vestibular therapy in an probable outpatient Exercise, weight reduction
[2018-06-06] MEDS: Insulin NovoLOG Aspart Correctional Sugar Inj SQ SCH ×5 (04:37→20:07)
[2018-06-06] MEDS: Furosemide 80 MG Tablet PO SCH (09:02)
[2018-06-06] MEDS: Metoprolol Tartrate 100 MG Tablet PO SCH ×2 (09:10→20:07)
--- NOTE | 2018-06-06 09:12 | P.PNIM ---
Subjective Interval history: Follow-up benign positional vertigo June 06, 2018patient seen and examined, still complains of nausea without any emesis. Also complains of dizziness with mostly positional changes. Patient currently of heart rate over 100 without any chest pain or significant shortness of breath. Physical Exam Vital signs: Vital Signs 06/05/18 11:31 06/05/18 14:15 06/05/18 16:20 Temperature 98.0 F 98.4 F Pulse Rate 64 71 Respiratory Rate 18 16 Blood Pressure 150/70 H 126/64 Pulse Oximetry 93 L 85 L 93 L 06/05/18 18:00 06/05/18 18:12 06/05/18 19:15 Temperature 98.2 F 97.9 F Pulse Rate 144 H 120 H 107 H Respiratory Rate 20 18 Blood Pressure 116/66 154/82 H Pulse Oximetry 94 L 94 L 06/05/18 20:00 06/05/18 23:40 06/06/18 00:00 Temperature 97.6 F Pulse Rate 129 H 110 H 100 H Respiratory Rate 18 Blood Pressure 141/73 H Pulse Oximetry 94 L 06/06/18 03:42 06/06/18 04:00 06/06/18 04:30 Temperature 97.6 F Pulse Rate 108 H 113 H Respiratory Rate 18 18 Blood Pressure 147/86 H Pulse Oximetry 94 L 06/06/18 07:40 Temperature 98.1 F Pulse Rate 124 H Respiratory Rate 20 Blood Pressure 135/81 Pulse Oximetry 95 Intake & Output 06/05/18 06/06/18 06/06/18 18:59 06:59 18:59 Intake Total 480 / 480 Balance 480 / 480 Weight 125.1 kg Intake: Oral 480 / 480 Other: # Voids 1 Date of Last Bowel Movement 06/05/18 # Bowel Movements 1 Narrative: Gen.: No acute distress Head: Normocephalic. Atraumatic. EENT: Pupils equal round and reactive to light. Nose without drainage. Airway intact. Throat without injection. Cardiovascular: Regular rate and rhythm. No murmurs, rubs or gallops. Respiratory: Lungs clear to auscultation bilaterally. No wheezes or rhonchi. Abdomen: Soft, nontender, nondistended. No peritoneal signs. Musculoskeletal: No gross deformities. No edema. Skin: No obvious rashes or erythema. Neuro: Cranial nerves II through XII intact. Sensation intact throughout. Strength 5/5 throughout. Alert and oriented x4. No facial droop or slurred speech. Results Labs CBC & Chem 7: 06/06/18 09:10 06/06/18 09:10 Labs: Microbiology 06/04/18 16:35 Blood - Peripheral Aerobic Blood Culture - Preliminary No growth in 1 day 06/04/18 16:35 Blood - Peripheral Anaerobic Blood Culture - Preliminary No growth in 1 day 06/04/18 16:20 Blood - Peripheral Aerobic Blood Culture - Preliminary No growth in 1 day 06/04/18 16:20 Blood - Peripheral Anaerobic Blood Culture - Preliminary No growth in 1 day Imaging Imaging: Impressions Head MRA 06/05/18 00:00 CONCLUSION: 1. Negative MRA of the [place] of [place]. Assessment and Plan (1) BPV (benign positional vertigo): Code(s): H81.10 - Benign paroxysmal vertigo, unspecified ear Status: Acute (2) Obesity: Code(s): E66.9 - Obesity, unspecified Status: Acute (3) Gait disorder: Code(s): R26.9 - Unspecified abnormalities of gait and mobility Status: Acute (4) A-fib: Code(s): I48.91 - Unspecified atrial fibrillation Status: Acute Plan 73-year-old female with 1. Lightheadedness with intractable nausea-Likely secondary to benign positional vertigo Brain MRI with finding of subacute to chronic parietal lobe CVA Start scheduled meclizine PT to treat and eval Posterior vestibular therapy in outpatient setting 2. Subacute to chronic-right parietal lobe CVA However per neurology this is an old stroke and patient's current symptoms of dizziness not related to each Discontinue Permissive hypertension Head CT per hypodensity with loss of german/white matter differentiation in the right MCA/CUSTOMER RETENTION REPRESENTATIVE watershed zone suggestive of ischemia, mass or infarction MRI positive for subacute to chronic right parietal lobe CVA MRA/carotid ultrasound unremarkable Neurology consulted, appreciate assistance 3. Atrial fibrillation With currently RVR Increase metoprolol to 100 mg twice daily, will consider Cardizem drip if no improvement Consult Dr. Syed, dental technology advisor Continue with telemetry monitoring Continue Pradaxa 4. Diabetes mellitus Holding home glipizide Sliding-scale insulin Monitor blood glucose 5. Hypertension/hyperlipidemia Continue home medications Progress Note: Quality VTE Deep Vein Thrombosis/Pulmonary Embolism Present on Admission: No _ (1) BPV (benign positional vertigo) Qualifiers: Laterality: (2) A-fib Qualifiers: Atrial fibrillation type: (3) Obesity Qualifiers: Body mass index: Obesity classification: Obesity type: Serious obesity comorbidity presence:
[2018-06-06 09:45] LABS: Baso % (Auto) 0.5 % (0.0-2.0); Eos # (Auto) 0.2 th/mm3 (0.0-0.4); Eos % (Auto) 2.8 % (0.0-4.0); Hematocrit 41.2 % (35.0-46.0); Hemoglobin 13.3 gm/dL (11.6-15.3); Lymph % (Auto) 26.8 % (9.0-44.0); Mean Corpuscular HGB Conc 32.3 % (32.0-36.0); Mean Corpuscular Hemoglobin 26.4 pg (27.0-34.0); Mean Corpuscular Volume 81.6 fL (80.0-100.0); Mean Platelet Volume 9.3 fL (7.0-11.0); Mono # (Auto) 0.6 th/mm3 (0.0-0.9); Mono % (Auto) 8.3 % (0.0-8.0); Neut # (Auto) 4.6 th/mm3 (1.8-7.7); Neut % (Auto) 61.6 % (16.0-70.0); Platelet Count 197 th/mm3 (150-450); Red Blood Count 5.05 mil/mm3 (4.00-5.30); Red Cell Distribution Width 15.8 % (11.6-17.2); White Blood Count 7.4 th/mm3 (4.0-11.0)
--- NOTE | 2018-06-06 10:16 | P.PNNEU ---
Subjective Subjective Comments: Still with dizziness but able to tolerate p.o. Eating breakfast morning. Denies any headache chest pain or focal weakness Active Medications: Active Medications Acetaminophen (Tylenol) 650 mg PO Q4H PRN PRN Reason: Temp > 100.4 Dabigatran (Pradaxa) 150 mg PO BID [facility] Last Admin: 06/06/18 09:02 Dose: 150 mg Dextrose (D50w Vial) 50 ml IV.PUSH UNSCH PRN PRN Reason: PER HYPOGLYCEMIA PROTOCOL Furosemide (Lasix) 80 mg PO DAILY [facility] Last Admin: 06/06/18 09:02 Dose: 80 mg Glucagon (Glucagon Inj) 1 mg OTHER PRN PRN PRN Reason: for Hypoglycemia Protocol Insulin Aspart (Novolog Insulin Correctional Sugar Inj) 0 unit SQ ACHS AND 3AM [facility]; Protocol Last Admin: 06/06/18 09:19 Dose: Not Given Meclizine HCl (Antivert) 25 mg PO Q6HR [facility] Last Admin: 06/06/18 09:12 Dose: 25 mg Metoprolol Tartrate (Lopressor) 100 mg PO BID [facility] Last Admin: 06/06/18 09:10 Dose: 100 mg Ondansetron HCl (Zofran Inj) 4 mg IV.PUSH Q6H PRN PRN Reason: NAUSEA OR VOMITING Last Admin: 06/05/18 22:00 Dose: 4 mg Sodium Chloride (Ns Flush) 2 ml IV.FLUSH PRN PRN PRN Reason: FLUSH AFTER USING IV ACCESS Last Admin: 06/04/18 17:00 Dose: 2 ml Sodium Chloride (Ns Flush) 2 ml IV.FLUSH BID [facility] Last Admin: 06/06/18 09:17 Dose: 2 ml Allergies/Adverse Reactions: Allergies Allergy/AdvReac Type Severity Reaction Status Date / Time No Known Allergies Allergy Verified 06/04/18 16:18 Review of Systems All other systems reviewed negative except as stated in HPI Physical Exam Vital signs: Vital Signs 06/05/18 11:31 06/05/18 14:15 06/05/18 16:20 Temperature 98.0 F 98.4 F Pulse Rate 64 71 Respiratory Rate 18 16 Blood Pressure 150/70 H 126/64 Pulse Oximetry 93 L 85 L 93 L 06/05/18 18:00 06/05/18 18:12 06/05/18 19:15 Temperature 98.2 F 97.9 F Pulse Rate 144 H 120 H 107 H Respiratory Rate 20 18 Blood Pressure 116/66 154/82 H Pulse Oximetry 94 L 94 L 06/05/18 20:00 06/05/18 23:40 06/06/18 00:00 Temperature 97.6 F Pulse Rate 129 H 110 H 100 H Respiratory Rate 18 Blood Pressure 141/73 H Pulse Oximetry 94 L 06/06/18 03:42 06/06/18 04:00 06/06/18 04:30 Temperature 97.6 F Pulse Rate 108 H 113 H Respiratory Rate 18 18 Blood Pressure 147/86 H Pulse Oximetry 94 L 06/06/18 07:40 Temperature 98.1 F Pulse Rate 124 H Respiratory Rate 20 Blood Pressure 135/81 Pulse Oximetry 95 Intake & Output 06/05/18 06/06/18 06/06/18 18:59 06:59 18:59 Intake Total 480 / 480 Balance 480 / 480 Weight 125.1 kg Intake: Oral 480 / 480 Other: # Voids 1 Date of Last Bowel Movement 06/05/18 # Bowel Movements 1 Narrative: GENERAL: in NAD, obese SKIN: Warm and dry. HEAD: Atraumatic. Normocephalic. EYES: Pupils equal and round. ENT: No nasal bleeding or discharge. NECK: Trachea midline. No JVD. CARDIOVASCULAR: Regular rate and rhythm. RESPIRATORY: No accessory muscle use. GASTROINTESTINAL: Abdomen soft, non-tender, nondistended. MUSCULOSKELETAL: Extremities without clubbing, cyanosis, or edema. NEUROLOGICAL: Awake and alert. Sitting up eating breakfast looks comfortable oriented x3 no aphasia, fluent articulate, No facial asymmetry, no drift PSYCHIATRIC: Appropriate mood and affect; insight and judgment normal. - Constitutional no acute distress - Routine HEENT Exam Head: Present: normocephalic Eye: Present: EOMI Objective Laboratory Results - last 24 hr 06/05/18 06/05/18 06/05/18 11:53 16:37 21:49 WBC RBC Hgb Hct MCV MCH MCHC RDW Plt Count MPV Neut % (Auto) Lymph % (Auto) [place] % (Auto) Eos % (Auto) Baso % (Auto) Neut # (Auto) Lymph # (Auto) [place] # (Auto) Eos # (Auto) Baso # (Auto) WBC Differential Differential Comment POC Glucose 119 H 132 H 140 H 02/06/06/18 06/06/18 04:37 07:48 09:10 WBC 7.4 RBC 5.05 Hgb 13.3 Hct 41.2 MCV 81.6 MCH 26.4 L MCHC 32.3 RDW 15.8 Plt Count 197 MPV 9.3 Neut % (Auto) 61.6 Lymph % (Auto) 26.8 [place] % (Auto) 8.3 H Eos % (Auto) 2.8 Baso % (Auto) 0.5 Neut # (Auto) 4.6 Lymph # (Auto) 2.0 [place] # (Auto) 0.6 Eos # (Auto) 0.2 Baso # (Auto) 0.0 WBC Differential . Differential Comment Auto diff final POC Glucose 135 H 134 H Microbiology 06/04/18 16:35 Aerobic Blood Culture - Preliminary Blood - Peripheral No growth in 1 day Anaerobic Blood Culture - Preliminary No growth in 1 day 06/04/18 16:20 Aerobic Blood Culture - Preliminary Blood - Peripheral No growth in 1 day Anaerobic Blood Culture - Preliminary No growth in 1 day Review/Management - Diagnosis (1) BPV (benign positional vertigo) Code(s): H81.10 - Benign paroxysmal vertigo, unspecified ear Status: Acute Current Visit: Yes (2) Obesity Code(s): E66.9 - Obesity, unspecified Status: Acute Current Visit: Yes (3) Gait disorder Code(s): R26.9 - Unspecified abnormalities of gait and mobility Status: Acute Current Visit: Yes (4) A-fib Code(s): I48.91 - Unspecified atrial fibrillation Status: Acute Current Visit: Yes - Review/Management Plan: Probable benign positional vertigo. 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 fib with RVR Discharge planning from neurology standpoint No driving until vertigo resolved Exercise, weight reduction
[2018-06-06 10:19] LABS: Alanine Aminotransferase 17 U/L (10-53); Albumin 2.8 g/dL (3.4-5.0); Alkaline Phosphatase 84 U/L (45-117); Anion Gap 5 meq/L (5-15); Aspartate Aminotransferase 19 U/L (15-37); Blood Urea Nitrogen 13 mg/dL (7-18); Calcium 8.4 mg/dL (8.5-10.1); Chloride 106 meq/L (98-107); Glomerular Filtration Rate 57 mL/min (>89); Glucose,Random 146 mg/dL (74-106); Potassium 3.7 meq/L (3.5-5.1); Sodium 143 meq/L (136-145); Total Protein 7.3 g/dL (6.4-8.2)
--- NOTE | 2018-06-06 14:31 | P.DCO ---
Diagnosis (1) BPV (benign positional vertigo): Status: Acute (2) Obesity: Status: Acute (3) Gait disorder: Status: Acute (4) A-fib: Status: Acute Physical Therapy Order: Evaluate and treat Home Health Nursing Order: Signs/symptoms of disease process Case Management Consult Case Management Consult-Home Health: Yes I have seen patient Yoselin Hough on 06/06/18. My clinical findings support the need for the requested home health care services because: I certify that my clinical findings support that this patient is homebound because: _ (1) BPV (benign positional vertigo) Qualifiers: Laterality: (2) Obesity Qualifiers: Obesity type: Obesity classification: Serious obesity comorbidity presence : Body mass index: (3) A-fib Qualifiers: Atrial fibrillation type:
[2018-06-06] MEDS: dilTIAZem Inj 125 MG in Sodium Chlor 0.9% Inj 100 ML IV.CONT PRN (16:40)
--- NOTE | 2018-06-06 20:32 | ECG ---
Date Performed: 06/05/2018 Time Performed: 18:23:00 PTAGE: 73 years EKG: ATRIAL FIBRILLATION WITH RAPID VENTRICULAR RESPONSE POSSIBLE RIGHT VENTRICULAR CONDUCTION D ELAY MODERATE ST DEPRESSION ABNORMAL ECG PREVIOUS TRACING : 06/04/2018 16.55 Compared to previous tracing, AFIB WITH RVR IS NEW DOCTOR: Ricardo Montano Interpretating Date/Time 06/06/2018 20:31:41
--- NOTE | 2018-06-07 01:36 | MB ---
cc: Mainor Syed DO DATE: 06/06/2018 REASON FOR CONSULTATION: Atrial fibrillation. HISTORY OF PRESENT ILLNESS: Yoselin Hough is a pleasant 73-year-old female, whom I see in the office and presented to [facility] due to dizziness with intractable nausea and vomiting. She previously had cataract surgery 2 weeks ago and started vomiting earlier this week. She felt better until later that week when she started getting dizziness and lightheadedness. She did have vomiting all day and it has been persistent, mainly postprandial. On arrival, she was found to have atrial fibrillation with rapid ventricular response. She does have known atrial fibrillation and is anticoagulated with Pradaxa. MRI shows an old CVA. She previously was set up for DIGNA and cardioversion a number of weeks ago, but upon arrival, she was in sinus rhythm. She most likely went back into atrial fibrillation, which has led to some of her symptoms as she has not tolerated A-fib in the past. She denies chest pain or shortness of breath. PAST MEDICAL HISTORY: 1. Atrial fibrillation. 2. Diabetes. 3. Hypertension. 4. Hyperlipidemia. PAST SURGICAL HISTORY: 1. Cholecystectomy. 2. . MEDICATIONS: 1. Citalopram 20 mg daily. 2. Lovastatin 20 mg daily. 3. Glipizide 5 mg b.i.d. 4. Lasix 80 mg daily. 5. Pepcid 40 mg daily. 6. Norvasc 10 mg daily. 7. Hydrocodone/acetaminophen 10/325 mg t.i.d. as needed. 8. Potassium chloride 10 mEq daily. 9. Metoprolol tartrate 75 mg b.i.d. 10. Pradaxa 150 mg b.i.d. FAMILY HISTORY: Denies sudden cardiac within the family. SOCIAL HISTORY: Denies tobacco, alcohol or drug abuse. REVIEW OF SYSTEMS: Fourteen systems were reviewed including osteopathic. Pertinent positives and negatives above, otherwise negative. PHYSICAL EXAMINATION: VITAL SIGNS: Temperature 97.6, heart rate 113, blood pressure 147/86, respirations 94% on 2 liters. GENERAL: The patient appears well, in no acute distress. Alert, awake and oriented x3. HEENT: Extraocular muscles intact. Mucous membranes moist. NECK: Supple. No JVD at 45 degrees. No carotid bruits heard bilaterally. Carotid upstroke is brisk in nature. HEART: Irregularly irregular and tachycardic. LUNGS: Clear to auscultation bilaterally. No wheezes, rales or rhonchi. ABDOMEN: Soft, nontender, nondistended. No organomegaly noted. EXTREMITIES: Show no clubbing, cyanosis or edema. Femoral and distal pulses are intact bilaterally. NEUROLOGIC: No focal deficits. SKIN: Warm, dry and intact. OSTEOPATHIC: No kyphoscoliosis, lordosis or paraspinal tender points. LABORATORY DATA: Hemoglobin 13.3, hematocrit 41.2, platelets 197. Potassium 3.7, BUN 13, creatinine 0.96. Troponin less than 0.02. Electrocardiogram (06/05/2018 at 18:23): Atrial fibrillation with rapid ventricular response, incomplete right bundle branch block, nonspecific ST-T wave changes. IMPRESSION: 1. Atrial fibrillation with rapid ventricular response. 2. Intractable nausea and vomiting. 3. Dizziness. 4. History of old cerebrovascular accident. RECOMMENDATIONS: 1. Ms. Hough presented with nausea, vomiting, and dizziness. 2. She was found to be in atrial fibrillation with rapid ventricular response. The current plan is to send her to CICU and start her on a Cardizem drip for further heart rate control. 3. If heart rates are controlled on Cardizem, then we will continue her on her current medicines. If heart rates are still elevated, she may need DIGNA and cardioversion. 4. Most likely nausea and vomiting as well as increased sympathetics most likely related to her atrial fibrillation with rapid ventricular response. 5. Dizziness may be possibly vertigo versus due to atrial fibrillation. 6. She knows when she is in atrial fibrillation as she feels horrible. If heart rates are stabilized, but still in atrial fibrillation, we may need to start an antiarrhythmic like amiodarone to keep her in sinus rhythm. 7. If she converts to sinus rhythm, then we will most likely keep her on her current management with heart rates and rhythm control if possible. Thank you for allowing me to see Yoselin Hough. If there are any questions, please do not hesitate to call. Mainor Syed, VGP/vin , 12:00 AM , 12:13 AM
[2018-06-07] MEDS: Insulin NovoLOG Aspart Correctional Sugar Inj SQ SCH ×5 (04:06→22:07)
[2018-06-07] MEDS: dilTIAZem Inj 125 MG in Sodium Chlor 0.9% Inj 100 ML IV.CONT PRN (05:59)
[2018-06-07] MEDS: Metoprolol Tartrate 100 MG Tablet PO SCH ×2 (09:22→21:10)
[2018-06-07] MEDS: Furosemide 80 MG Tablet PO SCH (09:22)
--- NOTE | 2018-06-07 09:38 | P.PNNEU ---
Subjective Subjective Comments: Had a dizzy spell last night spinning sensation, no headache no vision loss no focal weakness. Active Medications: Active Medications Acetaminophen (Tylenol) 650 mg PO Q4H PRN PRN Reason: Temp > 100.4 Dabigatran (Pradaxa) 150 mg PO BID [facility] Last Admin: 06/07/18 09:22 Dose: 150 mg Dextrose (D50w Vial) 50 ml IV.PUSH UNSCH PRN PRN Reason: PER HYPOGLYCEMIA PROTOCOL Furosemide (Lasix) 80 mg PO DAILY [facility] Last Admin: 06/07/18 09:22 Dose: 80 mg Glucagon (Glucagon Inj) 1 mg OTHER PRN PRN PRN Reason: for Hypoglycemia Protocol Diltiazem HCl 125 mg/ Sodium (Chloride) 125 mls @ 5 mls/hr IV.CONT TITRATE PRN ; Protocol PRN Reason: Per Protocol Last Admin: 06/07/18 05:59 Dose: 10 mg/hr, 10 mls/hr Insulin Aspart (Novolog Insulin Correctional Sugar Inj) 0 unit SQ ACHS AND 3AM [facility]; Protocol Last Admin: 06/07/18 09:22 Dose: Not Given Meclizine HCl (Antivert) 25 mg PO Q6HR [facility] Last Admin: 06/07/18 05:59 Dose: 25 mg Metoprolol Tartrate (Lopressor) 100 mg PO BID [facility] Last Admin: 06/07/18 09:22 Dose: 100 mg Ondansetron HCl (Zofran Inj) 4 mg IV.PUSH Q6H PRN PRN Reason: NAUSEA OR VOMITING Last Admin: 06/05/18 22:00 Dose: 4 mg Sodium Chloride (Ns Flush) 2 ml IV.FLUSH PRN PRN PRN Reason: FLUSH AFTER USING IV ACCESS Last Admin: 06/04/18 17:00 Dose: 2 ml Sodium Chloride (Ns Flush) 2 ml IV.FLUSH BID [facility] Last Admin: 06/07/18 09:22 Dose: Not Given Allergies/Adverse Reactions: Allergies Allergy/AdvReac Type Severity Reaction Status Date / Time No Known Allergies Allergy Verified 06/04/18 16:18 Review of Systems All other systems reviewed negative except as stated in HPI Physical Exam Vital signs: Vital Signs 06/06/18 12:00 06/06/18 15:30 06/06/18 16:30 Temperature 98.2 F 98.0 F Pulse Rate 136 H 84 122 H Respiratory Rate 20 20 Blood Pressure 137/64 140/74 Pulse Oximetry 96 94 L 95 06/06/18 17:00 06/06/18 18:02 06/06/18 19:00 Temperature Pulse Rate 122 H 88 108 H Respiratory Rate Blood Pressure Pulse Oximetry 95 06/06/18 19:30 06/06/18 20:00 06/06/18 21:00 Temperature 98.3 F Pulse Rate 102 H 88 105 H Respiratory Rate 22 Blood Pressure 126/76 Pulse Oximetry 94 L 06/06/18 22:00 06/06/18 23:00 06/07/18 00:00 Temperature 98.6 F Pulse Rate 98 H 102 H 82 Respiratory Rate 18 Blood Pressure 133/77 Pulse Oximetry 94 L 94 L 06/07/18 01:00 06/07/18 02:00 06/07/18 03:00 Temperature Pulse Rate 84 88 85 Respiratory Rate Blood Pressure Pulse Oximetry 95 06/07/18 04:00 06/07/18 05:00 06/07/18 05:32 Temperature 98.3 F Pulse Rate 81 87 Respiratory Rate 18 Blood Pressure 139/60 Pulse Oximetry 94 L 94 L 06/07/18 06:00 Temperature Pulse Rate 92 H Respiratory Rate Blood Pressure Pulse Oximetry Intake & Output 06/06/18 06/07/18 06/07/18 18:59 06:59 18:59 Intake Total 100 / 100 605 / 605 Output Total 0 / 0 700 / 700 Balance 100 / 100 -95 / -95 Weight 122.6 kg Intake: IV 125 / 125 Cardizem Inj 125 MG In NS Inj 125 / 125 100 ML @ 5 MG/HR 5 mls/hr IV. CONT TITRATE PRN Rx#:[id number] Oral 100 / 100 480 / 480 Output: Urine 0 / 0 700 / 700 Other: # Voids 1 Date of Last Bowel Movement 06/05/18 06/06/18 Narrative: GENERAL: in NAD, morbidly obese SKIN: Warm and dry. HEAD: Atraumatic. Normocephalic. EYES: Pupils equal and round. ENT: No nasal bleeding or discharge. NECK: Trachea midline. No JVD. CARDIOVASCULAR: Regular rate and rhythm. RESPIRATORY: No accessory muscle use. GASTROINTESTINAL: Abdomen soft, non-tender, . NEUROLOGICAL: Awake and alert. Oriented x3 no aphasia no drift getting an IV placed PSYCHIATRIC: Appropriate mood and affect; insight and judgment normal. - Constitutional no acute distress - Routine HEENT Exam Head: Present: normocephalic Eye: Present: EOMI Objective Laboratory Results - last 24 hr 06/06/18 06/06/18 06/06/18 09:10 09:10 12:17 WBC 7.4 RBC 5.05 Hgb 13.3 Hct 41.2 MCV 81.6 MCH 26.4 L MCHC 32.3 RDW 15.8 Plt Count 197 MPV 9.3 Neut % (Auto) 61.6 Lymph % (Auto) 26.8 [place] % (Auto) 8.3 H Eos % (Auto) 2.8 Baso % (Auto) 0.5 Neut # (Auto) 4.6 Lymph # (Auto) 2.0 [place] # (Auto) 0.6 Eos # (Auto) 0.2 Baso # (Auto) 0.0 WBC Differential . Differential Comment Auto diff final Sodium 143 Potassium 3.7 Chloride 106 Carbon Dioxide 32.0 Anion Gap 5 BUN 13 Creatinine 0.96 Estimated GFR 57 L POC Glucose 170 H Random Glucose 146 H Calcium 8.4 L Total Bilirubin 0.3 AST 19 ALT 17 Alkaline Phosphatase 84 Total Protein 7.3 D Albumin 2.8 L D 06/06/18 06/06/18 06/07/18 16:43 19:53 03:59 WBC RBC Hgb Hct MCV MCH MCHC RDW Plt Count MPV Neut % (Auto) Lymph % (Auto) [place] % (Auto) Eos % (Auto) Baso % (Auto) Neut # (Auto) Lymph # (Auto) [place] # (Auto) Eos # (Auto) Baso # (Auto) WBC Differential Differential Comment Sodium Potassium Chloride Carbon Dioxide Anion Gap BUN Creatinine Estimated GFR POC Glucose 176 H 160 H 183 H Random Glucose Calcium Total Bilirubin AST ALT Alkaline Phosphatase Total Protein Albumin 06/07/18 07:45 WBC RBC Hgb Hct MCV MCH MCHC RDW Plt Count MPV Neut % (Auto) Lymph % (Auto) [place] % (Auto) Eos % (Auto) Baso % (Auto) Neut # (Auto) Lymph # (Auto) [place] # (Auto) Eos # (Auto) Baso # (Auto) WBC Differential Differential Comment Sodium Potassium Chloride Carbon Dioxide Anion Gap BUN Creatinine Estimated GFR POC Glucose 125 H Random Glucose Calcium Total Bilirubin AST ALT Alkaline Phosphatase Total Protein Albumin Microbiology 06/04/18 16:35 Aerobic Blood Culture - Preliminary Blood - Peripheral No growth in 2 days Anaerobic Blood Culture - Preliminary No growth in 2 days 06/04/18 16:20 Aerobic Blood Culture - Preliminary Blood - Peripheral No growth in 2 days Anaerobic Blood Culture - Preliminary No growth in 2 days Review/Management - Diagnosis (1) BPV (benign positional vertigo) Code(s): H81.10 - Benign paroxysmal vertigo, unspecified ear Status: Acute Current Visit: Yes (2) Obesity Code(s): E66.9 - Obesity, unspecified Status: Acute Current Visit: Yes (3) Gait disorder Code(s): R26.9 - Unspecified abnormalities of gait and mobility Status: Acute Current Visit: Yes (4) A-fib Code(s): I48.91 - Unspecified atrial fibrillation Status: Acute Current Visit: Yes - Review/Management Plan: Probable benign positional vertigo. 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 [place] stable therapy inpatient PT as feasible Discussed with OT Cardiology consulted for A. fib with RVR Discharge planning from neurology standpoint No driving until vertigo resolved Exercise, weight reduction
[2018-06-07] MEDS: dilTIAZem 60 MG Tablet PO SCH ×2 (15:18→21:11)
--- NOTE | 2018-06-07 17:17 | P.PNIM ---
Subjective Interval history: RN reports intermittent dizzy spells, pt affirms this mainly happens when she's ambulating. Physical Exam Vital signs: Vital Signs 06/06/18 18:02 06/06/18 19:00 06/06/18 19:30 Temperature 98.3 F Pulse Rate 88 108 H 102 H Respiratory Rate 22 Blood Pressure 126/76 Pulse Oximetry 95 94 L 06/06/18 20:00 06/06/18 21:00 06/06/18 22:00 Temperature Pulse Rate 88 105 H 98 H Respiratory Rate Blood Pressure Pulse Oximetry 06/06/18 23:00 06/07/18 00:00 06/07/18 01:00 Temperature 98.6 F Pulse Rate 102 H 82 84 Respiratory Rate 18 Blood Pressure 133/77 Pulse Oximetry 94 L 94 L 06/07/18 02:00 06/07/18 03:00 06/07/18 04:00 Temperature 98.3 F Pulse Rate 88 85 81 Respiratory Rate 18 Blood Pressure 139/60 Pulse Oximetry 95 94 L 06/07/18 05:00 06/07/18 05:32 06/07/18 06:00 Temperature Pulse Rate 87 92 H Respiratory Rate Blood Pressure Pulse Oximetry 94 L 06/07/18 07:00 06/07/18 08:00 06/07/18 09:00 Temperature 98.6 F Pulse Rate 85 88 90 Respiratory Rate 16 Blood Pressure 124/68 Pulse Oximetry 95 06/07/18 10:00 06/07/18 11:00 06/07/18 12:00 Temperature 97.9 F Pulse Rate 88 96 H 76 Respiratory Rate 16 Blood Pressure 136/83 Pulse Oximetry 93 L 06/07/18 13:00 06/07/18 14:00 06/07/18 15:00 Temperature Pulse Rate 76 80 76 Respiratory Rate Blood Pressure Pulse Oximetry 06/07/18 16:00 Temperature 98.1 F Pulse Rate 101 H Respiratory Rate 16 Blood Pressure 130/85 Pulse Oximetry 93 L Intake & Output 06/06/18 06/07/18 06/07/18 18:59 06:59 18:59 Intake Total 100 / 100 605 / 605 Output Total 0 / 0 700 / 700 Balance 100 / 100 -95 / -95 Weight 122.6 kg Intake: IV 125 / 125 Cardizem Inj 125 MG In NS Inj 125 / 125 100 ML @ 5 MG/HR 5 mls/hr IV. CONT TITRATE PRN Rx#:[id number] Oral 100 / 100 480 / 480 Output: Urine 0 / 0 700 / 700 Other: # Voids 1 Date of Last Bowel Movement 06/05/18 06/06/18 06/06/18 Narrative: Awake and alert, no acute distress Clear lungs bilaterally, labored breathing Heart sounds regular rate and rhythm, no murmurs No lower extremity edema Sitting up in chair at this time, no acute distress Results Labs CBC & Chem 7: 06/06/18 09:10 06/06/18 09:10 Labs: Microbiology 06/04/18 16:35 Blood - Peripheral Aerobic Blood Culture - Preliminary No growth in 3 days 06/04/18 16:35 Blood - Peripheral Anaerobic Blood Culture - Preliminary No growth in 3 days 06/04/18 16:20 Blood - Peripheral Aerobic Blood Culture - Preliminary No growth in 3 days 06/04/18 16:20 Blood - Peripheral Anaerobic Blood Culture - Preliminary No growth in 3 days Assessment and Plan (1) BPV (benign positional vertigo): Code(s): H81.10 - Benign paroxysmal vertigo, unspecified ear Status: Acute (2) Obesity: Code(s): E66.9 - Obesity, unspecified Status: Acute (3) Gait disorder: Code(s): R26.9 - Unspecified abnormalities of gait and mobility Status: Acute (4) A-fib: Code(s): I48.91 - Unspecified atrial fibrillation Status: Acute Plan 73-year-old female admitted with intractable nausea and dizziness. MRI findings negative for any acute stroke per neurology. Symptoms overall likely secondary to BPV and A. fib. She not tolerating p.o. intake. 1. Vertigo + nausea -Brain MRI showing chronic parietal lobe CVA per neuro -Appreciate neurology input, likely be BPPV, continue meclizine, - will likely need follow-up with ENT as an outpatient ear irrigation - outpt vestibular rehab 2. Subacute to chronic-right parietal lobe CVA chronic finding per neurology, contiinue home meds 3. Atrial fibrillation With currently RVR Was started on diltiazem drip, now off of it, continue with Lopressor, if stable by tomorrow can be considered for discharge but if still problematic cardiology will then proceed with DIGNA cardioversion. 4. Diabetes mellitus Holding home glipizide Sliding-scale insulin Monitor blood glucose 5. Hypertension/hyperlipidemia Continue home medications Possible DC tomorrow. Progress Note: Quality VTE Deep Vein Thrombosis/Pulmonary Embolism Present on Admission: No _ (1) BPV (benign positional vertigo) Qualifiers: Laterality: (2) A-fib Qualifiers: Atrial fibrillation type: (3) Obesity Qualifiers: Body mass index: Obesity classification: Obesity type: Serious obesity comorbidity presence:
--- NOTE | 2018-06-07 18:56 | P.PNCA ---
Subjective Interval history: Dizziness coming and going Cardizem rate at 10mg/hr Heart rates controlled Medications and Allergies Active Medications: Active Medications Acetaminophen (Tylenol) 650 mg PO Q4H PRN PRN Reason: Temp > 100.4 Dabigatran (Pradaxa) 150 mg PO BID [facility] Last Admin: 06/07/18 09:22 Dose: 150 mg Dextrose (D50w Vial) 50 ml IV.PUSH UNSCH PRN PRN Reason: PER HYPOGLYCEMIA PROTOCOL Diltiazem HCl (Cardizem) 60 mg PO QID [facility] Last Admin: 06/07/18 15:18 Dose: 60 mg Furosemide (Lasix) 80 mg PO DAILY [facility] Last Admin: 06/07/18 09:22 Dose: 80 mg Glucagon (Glucagon Inj) 1 mg OTHER PRN PRN PRN Reason: for Hypoglycemia Protocol Diltiazem HCl 125 mg/ Sodium (Chloride) 125 mls @ 5 mls/hr IV.CONT TITRATE PRN ; Protocol PRN Reason: Per Protocol Last Titration: 06/07/18 16:28 Dose: 0 mg/hr, 0 mls/hr Insulin Aspart (Novolog Insulin Correctional Sugar Inj) 0 unit SQ ACHS AND 3AM CELESTE; Protocol Last Admin: 06/07/18 17:11 Dose: 3 unit Meclizine HCl (Antivert) 25 mg PO Q6HR [facility] Last Admin: 06/07/18 17:10 Dose: 25 mg Metoprolol Tartrate (Lopressor) 100 mg PO BID [facility] Last Admin: 06/07/18 09:22 Dose: 100 mg Ondansetron HCl (Zofran Inj) 4 mg IV.PUSH Q6H PRN PRN Reason: NAUSEA OR VOMITING Last Admin: 06/05/18 22:00 Dose: 4 mg Sodium Chloride (Ns Flush) 2 ml IV.FLUSH PRN PRN PRN Reason: FLUSH AFTER USING IV ACCESS Last Admin: 06/04/18 17:00 Dose: 2 ml Sodium Chloride (Ns Flush) 2 ml IV.FLUSH BID [facility] Last Admin: 06/07/18 09:22 Dose: Not Given Allergies Allergy/AdvReac Type Severity Reaction Status Date / Time No Known Allergies Allergy Verified 06/04/18 16:18 Home Medications Medication Instructions Recorded Confirmed Type amlodipine 10 mg PO DAILY 06/04/18 06/04/18 History cholecalciferol (vitamin D3) 5,000 unit PO DAILY 06/04/18 06/04/18 History [Vitamin D3] dabigatran etexilate [Pradaxa] 150 mg PO BID 06/04/18 06/04/18 History escitalopram oxalate 20 mg PO DAILY 06/04/18 06/04/18 History esomeprazole magnesium 40 mg PO DAILY 06/04/18 06/04/18 History furosemide 80 mg PO DAILY 06/04/18 06/04/18 History glipizide 5 mg PO BID 06/04/18 06/04/18 History hydrocodone-acetaminophen 1 tab PO TID PRN 06/04/18 06/04/18 History lovastatin 20 mg PO DAILY 06/04/18 06/04/18 History metoprolol tartrate 75 mg PO BID 06/04/18 06/04/18 History potassium chloride 10 meq PO DAILY 06/04/18 06/04/18 History Physical Exam Vital signs: Vital Signs 06/06/18 19:00 06/06/18 19:30 06/06/18 20:00 Temperature 98.3 F Pulse Rate 108 H 102 H 88 Respiratory Rate 22 Blood Pressure 126/76 Pulse Oximetry 95 94 L 06/06/18 21:00 06/06/18 22:00 06/06/18 23:00 Temperature Pulse Rate 105 H 98 H 102 H Respiratory Rate Blood Pressure Pulse Oximetry 94 L 06/07/18 00:00 06/07/18 01:00 06/07/18 02:00 Temperature 98.6 F Pulse Rate 82 84 88 Respiratory Rate 18 Blood Pressure 133/77 Pulse Oximetry 94 L 06/07/18 03:00 06/07/18 04:00 06/07/18 05:00 Temperature 98.3 F Pulse Rate 85 81 87 Respiratory Rate 18 Blood Pressure 139/60 Pulse Oximetry 95 94 L 06/07/18 05:32 06/07/18 06:00 06/07/18 07:00 Temperature Pulse Rate 92 H 85 Respiratory Rate Blood Pressure Pulse Oximetry 94 L 06/07/18 08:00 06/07/18 09:00 06/07/18 10:00 Temperature 98.6 F Pulse Rate 88 90 88 Respiratory Rate 16 Blood Pressure 124/68 Pulse Oximetry 95 06/07/18 11:00 06/07/18 12:00 06/07/18 13:00 Temperature 97.9 F Pulse Rate 96 H 76 76 Respiratory Rate 16 Blood Pressure 136/83 Pulse Oximetry 93 L 06/07/18 14:00 06/07/18 15:00 06/07/18 16:00 Temperature 98.1 F Pulse Rate 80 76 78 Respiratory Rate 16 Blood Pressure 130/85 Pulse Oximetry 93 L 06/07/18 17:00 06/07/18 18:00 Temperature Pulse Rate 84 78 Respiratory Rate Blood Pressure Pulse Oximetry Intake & Output 06/06/18 06/07/18 06/07/18 18:59 06:59 18:59 Intake Total 100 / 100 605 / 605 1060 / 1060 Output Total 0 / 0 700 / 700 800 / 800 Balance 100 / 100 -95 / -95 260 / 260 Weight 122.6 kg Intake: IV 125 / 125 Cardizem Inj 125 MG In NS Inj 125 / 125 100 ML @ 5 MG/HR 5 mls/hr IV. CONT TITRATE PRN Rx#:[id number] Oral 100 / 100 480 / 480 1060 / 1060 Output: Urine 0 / 0 700 / 700 800 / 800 Other: # Voids 1 3 Date of Last Bowel Movement 06/05/18 06/06/18 06/07/18 # Bowel Movements 1 Narrative: GENERAL: in NAD, morbidly obese SKIN: Warm and dry. HEAD: Atraumatic. Normocephalic. EYES: Pupils equal and round. ENT: No nasal bleeding or discharge. NECK: Trachea midline. No JVD. CARDIOVASCULAR: Irregularly irregular RESPIRATORY: No accessory muscle use. GASTROINTESTINAL: Abdomen soft, non-tender, . NEUROLOGICAL: Awake and alert. Oriented x3 no aphasia no drift getting an IV placed PSYCHIATRIC: Appropriate mood and affect; insight and judgment normal. Results 06/06/18 09:10 06/06/18 09:10 Cardiac Enzymes 06/06/18 Range/Units 09:10 AST 19 (15-37) U/L CBC 06/06/18 Range/Units 09:10 WBC 7.4 (4.0-11.0) th/mm3 RBC 5.05 (4.00-5.30) mil/mm3 Hgb 13.3 (11.6-15.3) gm/dL Hct 41.2 (35.0-46.0) % Plt Count 197 (150-450) th/mm3 Neut # (Auto) 4.6 (1.8-7.7) th/mm3 Lymph # (Auto) 2.0 (1.0-4.8) th/mm3 [place] # (Auto) 0.6 (0.0-0.9) th/mm3 Eos # (Auto) 0.2 (0.0-0.4) th/mm3 Baso # (Auto) 0.0 (0.0-0.2) th/mm3 Comprehensive Metabolic Panel 06/06/18 Range/Units 09:10 Sodium 143 (136-145) meq/L Potassium 3.7 (3.5-5.1) meq/L Chloride 106 (98-107) meq/L Carbon Dioxide 32.0 (21.0-32.0) meq/L BUN 13 (7-18) mg/dL Creatinine 0.96 (0.50-1.00) mg/dL Calcium 8.4 L (8.5-10.1) mg/dL AST 19 (15-37) U/L ALT 17 (10-53) U/L Alkaline Phosphatase 84 (45-117) U/L Total Protein 7.3 D (6.4-8.2) g/dL Albumin 2.8 L D (3.4-5.0) g/dL Intake and Output 06/07/18 06/07/18 06/07/18 06:59 14:59 22:59 Intake Total 605 / 605 1060 / 1060 Output Total 700 / 700 800 / 800 Balance -95 / -95 260 / 260 Intake: IV 125 / 125 Cardizem Inj 125 MG In NS Inj 125 / 125 100 ML @ 5 MG/HR 5 mls/hr IV. CONT TITRATE PRN Rx#:[id number] Oral 480 / 480 1060 / 1060 Output: Urine 700 / 700 800 / 800 Other: # Voids 3 Date of Last Bowel Movement 06/06/18 06/06/18 06/07/18 # Bowel Movements 1 Weight 122.6 kg Assessment and Plan - Assessment (1) Obesity Code(s): E66.9 - Obesity, unspecified Status: Acute (2) A-fib Code(s): I48.91 - Unspecified atrial fibrillation Status: Acute (3) Vertigo Code(s): R42 - Dizziness and giddiness Status: Acute - Plan 1. Atrial fibrillation with rapid ventricular response. Stable on Cardizem drip at 10mg/hr Will transition to 60mg q6hrs If stable tomorrow, can be discharged on Cardizem CD 240mg daily If heart rates stable on Cardizem, then will attempt to avoid anti-arrhythmic , DIGNA/CV or ablation 2. Intractable nausea and vomiting. Decreased with Antivert 3. Dizziness. [place] to be vertigo Somewhat relieved with Antivert 4. History of old cerebrovascular accident.
[2018-06-07] MEDS: Acetaminophen 325 MG Tablet PO PRN (23:26)
[2018-06-08] MEDS: Insulin NovoLOG Aspart Correctional Sugar Inj SQ SCH ×4 (04:16→17:31)
[2018-06-08] MEDS: Metoprolol Tartrate 100 MG Tablet PO SCH ×2 (08:07→19:33)
[2018-06-08] MEDS: dilTIAZem 60 MG Tablet PO SCH ×4 (08:07→19:33)
[2018-06-08] MEDS: Furosemide 80 MG Tablet PO SCH (08:07)
--- NOTE | 2018-06-08 10:02 | P.PNNEU ---
Subjective Subjective Comments: mild dizziness yesterday. shruthi po. feels better this am Active Medications: Active Medications Acetaminophen (Tylenol) 650 mg PO Q4H PRN PRN Reason: fever or headache Last Admin: 06/07/18 23:26 Dose: 650 mg Dabigatran (Pradaxa) 150 mg PO BID [facility] Last Admin: 06/08/18 08:07 Dose: 150 mg Dextrose (D50w Vial) 50 ml IV.PUSH UNSCH PRN PRN Reason: PER HYPOGLYCEMIA PROTOCOL Diltiazem HCl (Cardizem) 60 mg PO QID [facility] Last Admin: 06/08/18 08:07 Dose: 60 mg Furosemide (Lasix) 80 mg PO DAILY [facility] Last Admin: 06/08/18 08:07 Dose: 80 mg Glucagon (Glucagon Inj) 1 mg OTHER PRN PRN PRN Reason: for Hypoglycemia Protocol Diltiazem HCl 125 mg/ Sodium (Chloride) 125 mls @ 5 mls/hr IV.CONT TITRATE PRN ; Protocol PRN Reason: Per Protocol Last Titration: 06/07/18 16:28 Dose: 0 mg/hr, 0 mls/hr Insulin Aspart (Novolog Insulin Correctional Sugar Inj) 0 unit SQ ACHS AND 3AM CELESTE; Protocol Last Admin: 06/08/18 08:07 Dose: Not Given Meclizine HCl (Antivert) 25 mg PO Q6HR [facility] Last Admin: 06/08/18 05:36 Dose: 25 mg Metoprolol Tartrate (Lopressor) 100 mg PO BID [facility] Last Admin: 06/08/18 08:07 Dose: 100 mg Ondansetron HCl (Zofran Inj) 4 mg IV.PUSH Q6H PRN PRN Reason: NAUSEA OR VOMITING Last Admin: 06/05/18 22:00 Dose: 4 mg Sodium Chloride (Ns Flush) 2 ml IV.FLUSH PRN PRN PRN Reason: FLUSH AFTER USING IV ACCESS Last Admin: 06/04/18 17:00 Dose: 2 ml Sodium Chloride (Ns Flush) 2 ml IV.FLUSH BID [facility] Last Admin: 06/08/18 08:08 Dose: 2 ml Allergies/Adverse Reactions: Allergies Allergy/AdvReac Type Severity Reaction Status Date / Time No Known Allergies Allergy Verified 06/04/18 16:18 Review of Systems All other systems reviewed negative except as stated in HPI Physical Exam Vital signs: Vital Signs 06/07/18 11:00 06/07/18 12:00 06/07/18 13:00 Temperature 97.9 F Pulse Rate 96 H 76 76 Respiratory Rate 16 Blood Pressure 136/83 Pulse Oximetry 93 L 06/07/18 14:00 06/07/18 15:00 06/07/18 16:00 Temperature 98.1 F Pulse Rate 80 76 78 Respiratory Rate 16 Blood Pressure 130/85 Pulse Oximetry 93 L 06/07/18 17:00 06/07/18 18:00 06/07/18 19:00 Temperature Pulse Rate 84 78 92 H Respiratory Rate Blood Pressure Pulse Oximetry 06/07/18 20:00 06/07/18 21:00 06/07/18 22:00 Temperature 99.0 F Pulse Rate 76 76 78 Respiratory Rate 18 Blood Pressure 157/80 H Pulse Oximetry 94 L 06/07/18 23:00 06/07/18 23:24 06/08/18 00:00 Temperature 98.6 F Pulse Rate 100 H 98 H 99 H Respiratory Rate 18 Blood Pressure 168/84 H Pulse Oximetry 92 L 92 L 06/08/18 01:00 06/08/18 02:00 06/08/18 03:00 Temperature Pulse Rate 102 H 101 H 75 Respiratory Rate Blood Pressure Pulse Oximetry 06/08/18 04:00 06/08/18 04:11 06/08/18 05:00 Temperature 98.1 F Pulse Rate 101 H 66 99 H Respiratory Rate 18 Blood Pressure 146/85 H Pulse Oximetry 92 L 92 L 06/08/18 05:55 06/08/18 07:00 06/08/18 08:00 Temperature 97.6 F Pulse Rate 96 H 89 84 Respiratory Rate 16 Blood Pressure 155/84 H Pulse Oximetry 89 L Intake & Output 06/07/18 06/08/18 06/08/18 18:59 06:59 18:59 Intake Total 1060 / 1060 Output Total 800 / 800 Balance 260 / 260 Weight 122 kg Intake: Oral 1060 / 1060 Output: Urine 800 / 800 Other: # Voids 3 Date of Last Bowel Movement 06/07/18 06/08/18 06/07/18 # Bowel Movements 1 Narrative: GENERAL: in NAD, morbidly obese SKIN: Warm and dry. HEAD: Atraumatic. Normocephalic. EYES: Pupils equal and round. ENT: No nasal bleeding or discharge. NECK: Trachea midline. No JVD. CARDIOVASCULAR: Irregularly irregular RESPIRATORY: No accessory muscle use. GASTROINTESTINAL: Abdomen soft, non-tender, . NEUROLOGICAL: Awake and alert. sitting up looks well, Oriented x3 no aphasia no drift, head thrust test performed PSYCHIATRIC: Appropriate mood and affect; insight and judgment normal. - Constitutional no acute distress - Routine HEENT Exam Head: Present: normocephalic Objective Laboratory Results - last 24 hr 06/07/18 06/07/18 06/07/18 11:35 17:02 22:07 POC Glucose 204 H 205 H 181 H 06/08/18 06/08/18 04:15 07:24 POC Glucose 216 H 142 H Microbiology 06/04/18 16:35 Aerobic Blood Culture - Preliminary Blood - Peripheral No growth in 3 days Anaerobic Blood Culture - Preliminary No growth in 3 days 06/04/18 16:20 Aerobic Blood Culture - Preliminary Blood - Peripheral No growth in 3 days Anaerobic Blood Culture - Preliminary No growth in 3 days Review/Management - Diagnosis (1) BPV (benign positional vertigo) Code(s): H81.10 - Benign paroxysmal vertigo, unspecified ear Status: Acute Current Visit: Yes (2) Obesity Code(s): E66.9 - Obesity, unspecified Status: Acute Current Visit: Yes (3) Gait disorder Code(s): R26.9 - Unspecified abnormalities of gait and mobility Status: Acute Current Visit: Yes (4) A-fib Code(s): I48.91 - Unspecified atrial fibrillation Status: Acute Current Visit: Yes - Review/Management Plan: Probable benign positional vertigo. 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 fib Recommendation Neuro stable. doing better Meclizine as needed Vestibular therapy in outpatient setting. Discussed with OT Cardiology consulted for A. fib with RVR Discharge planning from neurology standpoint No driving until vertigo resolved Exercise, weight reduction
[2018-06-08] MEDS: Acetaminophen 325 MG Tablet PO PRN (17:30)
--- NOTE | 2018-06-08 18:11 | P.PNCA ---
Subjective Interval history: Still with occasional vertigo Heart rates controlled Medications and Allergies Active Medications: Active Medications Acetaminophen (Tylenol) 650 mg PO Q4H PRN PRN Reason: fever or headache Last Admin: 06/08/18 17:30 Dose: 650 mg Dabigatran (Pradaxa) 150 mg PO BID [facility] Last Admin: 06/08/18 08:07 Dose: 150 mg Dextrose (D50w Vial) 50 ml IV.PUSH UNSCH PRN PRN Reason: PER HYPOGLYCEMIA PROTOCOL Diltiazem HCl (Cardizem) 60 mg PO QID [facility] Last Admin: 06/08/18 17:31 Dose: 60 mg Furosemide (Lasix) 80 mg PO DAILY [facility] Last Admin: 06/08/18 08:07 Dose: 80 mg Glucagon (Glucagon Inj) 1 mg OTHER PRN PRN PRN Reason: for Hypoglycemia Protocol Diltiazem HCl 125 mg/ Sodium (Chloride) 125 mls @ 5 mls/hr IV.CONT TITRATE PRN ; Protocol PRN Reason: Per Protocol Last Titration: 06/07/18 16:28 Dose: 0 mg/hr, 0 mls/hr Insulin Aspart (Novolog Insulin Correctional Sugar Inj) 0 unit SQ ACHS AND 3AM CELESTE; Protocol Last Admin: 06/08/18 17:31 Dose: 1 unit Meclizine HCl (Antivert) 25 mg PO Q6HR [facility] Last Admin: 06/08/18 17:31 Dose: 25 mg Metoprolol Tartrate (Lopressor) 100 mg PO BID [facility] Last Admin: 06/08/18 08:07 Dose: 100 mg Ondansetron HCl (Zofran Inj) 4 mg IV.PUSH Q6H PRN PRN Reason: NAUSEA OR VOMITING Last Admin: 06/05/18 22:00 Dose: 4 mg Sodium Chloride (Ns Flush) 2 ml IV.FLUSH PRN PRN PRN Reason: FLUSH AFTER USING IV ACCESS Last Admin: 06/04/18 17:00 Dose: 2 ml Sodium Chloride (Ns Flush) 2 ml IV.FLUSH BID [facility] Last Admin: 06/08/18 08:08 Dose: 2 ml Allergies Allergy/AdvReac Type Severity Reaction Status Date / Time No Known Allergies Allergy Verified 06/04/18 16:18 Home Medications Medication Instructions Recorded Confirmed Type amlodipine 10 mg PO DAILY 06/04/18 06/04/18 History cholecalciferol (vitamin D3) 5,000 unit PO DAILY 06/04/18 06/04/18 History [Vitamin D3] dabigatran etexilate [Pradaxa] 150 mg PO BID 06/04/18 06/04/18 History escitalopram oxalate 20 mg PO DAILY 06/04/18 06/04/18 History esomeprazole magnesium 40 mg PO DAILY 06/04/18 06/04/18 History furosemide 80 mg PO DAILY 06/04/18 06/04/18 History glipizide 5 mg PO BID 06/04/18 06/04/18 History hydrocodone-acetaminophen 1 tab PO TID PRN 06/04/18 06/04/18 History lovastatin 20 mg PO DAILY 06/04/18 06/04/18 History metoprolol tartrate 75 mg PO BID 06/04/18 06/04/18 History potassium chloride 10 meq PO DAILY 06/04/18 06/04/18 History Physical Exam Vital signs: Vital Signs 06/07/18 19:00 06/07/18 20:00 06/07/18 21:00 Temperature 99.0 F Pulse Rate 92 H 76 76 Respiratory Rate 18 Blood Pressure 157/80 H Pulse Oximetry 94 L 06/07/18 22:00 06/07/18 23:00 06/07/18 23:24 Temperature 98.6 F Pulse Rate 78 100 H 98 H Respiratory Rate 18 Blood Pressure 168/84 H Pulse Oximetry 92 L 06/08/18 00:00 06/08/18 01:00 06/08/18 02:00 Temperature Pulse Rate 99 H 102 H 101 H Respiratory Rate Blood Pressure Pulse Oximetry 92 L 06/08/18 03:00 06/08/18 04:00 06/08/18 04:11 Temperature 98.1 F Pulse Rate 75 101 H 66 Respiratory Rate 18 Blood Pressure 146/85 H Pulse Oximetry 92 L 92 L 06/08/18 05:00 06/08/18 05:55 06/08/18 07:00 Temperature Pulse Rate 99 H 96 H 89 Respiratory Rate Blood Pressure Pulse Oximetry 06/08/18 08:00 06/08/18 09:00 06/08/18 10:00 Temperature 97.6 F Pulse Rate 94 H 68 76 Respiratory Rate 16 Blood Pressure 155/84 H Pulse Oximetry 89 L 06/08/18 11:00 06/08/18 11:12 06/08/18 12:00 Temperature 98.1 F Pulse Rate 75 84 Respiratory Rate 16 Blood Pressure 128/52 L Pulse Oximetry 92 L 96 06/08/18 13:00 Temperature Pulse Rate 76 Respiratory Rate Blood Pressure Pulse Oximetry Intake & Output 06/07/18 06/08/18 06/08/18 18:59 06:59 18:59 Intake Total 1060 / 1060 Output Total 800 / 800 Balance 260 / 260 Weight 122 kg Intake: Oral 1060 / 1060 Output: Urine 800 / 800 Other: # Voids 3 Date of Last Bowel Movement 06/07/18 06/08/18 06/07/18 # Bowel Movements 1 Narrative: GENERAL: in NAD, morbidly obese SKIN: Warm and dry. HEAD: Atraumatic. Normocephalic. EYES: Pupils equal and round. ENT: No nasal bleeding or discharge. NECK: Trachea midline. No JVD. CARDIOVASCULAR: Irregularly irregular RESPIRATORY: No accessory muscle use. GASTROINTESTINAL: Abdomen soft, non-tender, . NEUROLOGICAL: Awake and alert. sitting up looks well, Oriented x3 no aphasia no drift, head thrust test performed PSYCHIATRIC: Appropriate mood and affect; insight and judgment normal. Results 06/06/18 09:10 06/06/18 09:10 Intake and Output 06/08/18 06/08/18 06/08/18 06:59 14:59 22:59 Other: Date of Last Bowel Movement 06/08/18 06/07/18 Weight 122 kg Assessment and Plan - Assessment (1) Obesity Code(s): E66.9 - Obesity, unspecified Status: Acute (2) A-fib Code(s): I48.91 - Unspecified atrial fibrillation Status: Acute (3) Vertigo Code(s): R42 - Dizziness and giddiness Status: Acute - Plan 1. Atrial fibrillation with rapid ventricular response. Cardizem 60mg q6hrs Discharge on Cardizem CD 240mg daily If heart rates stable on Cardizem, then will attempt to avoid anti-arrhythmic , DIGNA/CV or ablation 2. Intractable nausea and vomiting. Decreased with Antivert 3. Dizziness. [place] to be vertigo Somewhat relieved with Antivert 4. History of old cerebrovascular accident. 5. No further cardiovascular work up Cardiovascularly stable for discharge home
--- NOTE | 2018-06-09 08:44 | P.DS ---
DS: Providers Date of admission: 06/04/18 19:16 Primary care physician: Kwame Rhodes MD Consults: 06/04/18 19:24 HUB Only Consult Order Routine Consulting Provider: Rachel Ramos 06/04/18 20:21 Consult to Neurology Routine Consulting Provider: Romeo Call Reason for Consultation: mass vs ischemia on CT Notified:: Service Spoke with:: Cindi Date Notified:: 06/04/18 Time Notified:: 20:47 Ordering Provider: MARIA M 06/06/18 09:02 Consult to Cardiology Routine Consulting Provider: Prasanth Mendoza Does the patient have a Spice Grinder who follows them?: Yes Preferred Finger Lift Operator:: Mainor Salinas Reason for Consultation: 73-year-old female with history of A. fib not admitted with CVA, patient known to Dr. Salinas and currently in A. fib with RVR please evaluate and advise for therapy Notified:: Office Spoke with:: HANNAH Date Notified:: 06/06/18 Time Notified:: 09:07 Ordering Provider: OTTO DS: Diagnosis Discharge Diagnosis (1) BPV (benign positional vertigo): Status: Acute (2) Obesity: Status: Acute (3) Gait disorder: Status: Acute (4) A-fib: Status: Acute DS: Summary Patient was admitted, underwent neuro imaging which showed per neurology and old CVA but no new acute findings I would reflect the patient's vertigo/ nystagmus. She was concluded to have benign paroxysmal positional vertigo. She was also noted to be in A. fib with RVR which was stabilized after a Cardizem drip was weaned to oral Cardizem. Patient symptoms were intermittently recurring but much improved and she was able to ambulate and tolerate p.o. Patient was instructed to refrain from operating heavy machinery or driving so long as her symptoms are present. She was instructed to follow- up with neurology and cardiology as an outpatient. Patient has met maximal benefit from hospitalization is clinically stable for discharge. Time Spent with Patient Total time spent providing and/or coordinating discharge services: Less than 30 minutes Quality: VTE Deep Vein Thrombosis/Pulmonary Embolism Present on Admission: No Exam Narrative Exam Narrative: Heart rate is regular, rhythm is irregular Clear lungs bilaterally, unlabored breathing Normocephalic, atraumatic No facial droop, no slurred speech Awake alert, no acute distress Extraocular motions intact, no nystagmus Results Labs on day of discharge: Labs from last 24 hours 06/08/18 06/08/18 16:26 11:55 POC Glucose 157 H 189 H Preliminary micro results at discharge 06/04/18 16:35 Aerobic Blood Culture - Preliminary Blood - Peripheral No growth in 4 days Anaerobic Blood Culture - Preliminary No growth in 4 days 06/04/18 16:20 Aerobic Blood Culture - Preliminary Blood - Peripheral No growth in 4 days Anaerobic Blood Culture - Preliminary No growth in 4 days Impressions ITS Impressions Carotid Doppler Study 06/04/18 00:00 CONCLUSION: 1. Right Internal Carotid Artery: Findings indicate possible 50-69% stenosis. 2. Left Internal Carotid Artery: Findings indicate <50% stenosis. Chest X-Ray 06/04/18 16:23 CONCLUSION: 1. Possible early infiltrate or pleural effusion right lower chest. If the patient can tolerate a good quality PA and lateral view of the chest, this may be helpful for further evaluation. 2. Stable cardiomegaly. Head CT 06/04/18 16:23 CONCLUSION: 1. Hypodensity with loss of german/white matter differentiation in the right MCA/ SPINNER HYDRAULIC watershed zone suggestive of ischemia, mass, or infarction. Recommend further characterization with MRI with and without contrast. . Head MRI 06/04/18 18:01 CONCLUSION: Signal abnormality in the posterior right parietal lobe with no associated mass effect or abnormal enhancement. No restricted diffusion on the diffusion- weighted images. Findings suggest subacute to chronic right parietal lobe infarct/insult. Head MRA 06/05/18 00:00 CONCLUSION: 1. Negative MRA of the [place] of [place]. Discharge Plan Discharge Disposition Patient Disposition: 01 Discharge Home Discharge Condition Condition: Stable Discharge Order Discharge Orders: Discharge Order (Routine); Ordered 06/08/18 Ordered By: Marcial Keyes Physicians Team ED Provider: Thien Mann ED Midlevel Provider: Nathalia Urbano Primary Care Provider: Kwame Rhodes V Attending Provider: Marcial Keyes Other Providers: Rachel Ramos ; Romeo Call ; Prasanth Mendoza Rxs /Orders / Referrals /Forms Prescriptions: New metoprolol tartrate 100 mg Tablet 100 mg PO BID Qty: 60 RF: 0 diltiazem HCl 240 mg capsule,extended release 24hr 240 mg PO DAILY Qty: 30 RF: 0 meclizine 25 mg Tablet 25 mg PO TID PRN (Reason: dizziness) Qty: 60 RF: 0 Continue potassium chloride 10 mEq Capsule, Extended Release 10 meq PO DAILY RF: 0 hydrocodone-acetaminophen 10-325 mg Tablet 1 tab PO TID PRN (Reason: Pain) RF: 0 furosemide 80 mg Tablet 80 mg PO DAILY RF: 0 esomeprazole magnesium 40 mg Capsule,Delayed Release(Dr/Ec) 40 mg PO DAILY RF: 0 lovastatin 20 mg Tablet 20 mg PO DAILY RF: 0 glipizide 5 mg Tablet 5 mg PO BID RF: 0 escitalopram oxalate 20 mg Tablet 20 mg PO DAILY RF: 0 cholecalciferol (vitamin D3) [Vitamin D3] 5,000 unit Tablet 5,000 unit PO DAILY RF: 0 dabigatran etexilate [Pradaxa] 150 mg Capsule 150 mg PO BID RF: 0 Discontinued amlodipine 10 mg Tablet 10 mg PO DAILY RF: 0 metoprolol tartrate 75 mg Tablet 75 mg PO BID RF: 0 Referrals: mainor salinas [Other] - See Instructions [facility], [Agency] - See Instructions Kwame Rhodes MD [Primary Care Provider] - See Instructions Yoan Abraham MD [Physician] - See Instructions Mainor Salinas DO [Physician] - See Instructions Discharge Instructions Patient Printed Instructions: Metoprolol (By mouth), Diltiazem (By mouth), Meclizine (By mouth), A-fib (Atrial Fibrillation) (DC), Heart Healthy Diet (DC) , Vertigo (DC), Meal Planning with Diabetes Exchanges (DC) Status ED Status: Left Department Discharge Information Discharge Date/Time: 06/08/18 20:20
== END 2018-06-08 20:20 | disposition home or self-care (01) | DRG 149 ==
LOC: NEPD 14:53 → NEDA 19:16 → N05 21:14 → HCIS 06-06 16:23
PROVIDERS: ADMIT Hospitalist; ATTEND Hospitalist
DX: M17.0 Bilateral primary osteoarthritis of knee; Z83.3 Family history of diabetes mellitus; R11.2 Nausea with vomiting, unspecified; Z90.49 Acquired absence of other specified parts of digestive tract; M47.9 Spondylosis, unspecified; Z79.84 Long term (current) use of oral hypoglycemic drugs; Z86.73 Personal history of transient ischemic attack (TIA), and cerebral infarction without residual deficits; Z68.41 Body mass index [BMI] 40.0-44.9, adult; E78.5 Hyperlipidemia, unspecified; I48.91 Unspecified atrial fibrillation; I45.10 Unspecified right bundle-branch block; Z79.899 Other long term (current) drug therapy; I10 Essential (primary) hypertension; E66.9 Obesity, unspecified; H81.10 Benign paroxysmal vertigo, unspecified ear; H55.09 Other forms of nystagmus; E11.9 Type 2 diabetes mellitus without complications; M16.0 Bilateral primary osteoarthritis of hip; Z79.02 Long term (current) use of antithrombotics/antiplatelets; Z82.49 Family history of ischemic heart disease and other diseases of the circulatory system
CPT/HCPCS: 70450; 70544; 70553; 71010; 71045; 80048; 80053; 82550; 82948; 82962; 83605; 84443; 84484; 85025; 85610; 85730; 87040; 90760; 93005; 93306; 93880; 96360; 97110; 97162; 97167; 97530; 97535; 99285; A9585; J1815; J2060; J2405; J7030